=== PATIENT | male | born 2000 ===

== ENCOUNTER 2025-05-30 08:56 | Outpatient (REF) | payer OTHER, SELFPAY ==
[2025-05-31 09:59] LABS: MANUAL DIFF FLAG NO
[2025-05-31 10:07] LABS: Hematocrit 40.3 % (42.0-52.0); Hemoglobin 13.1 g/dl (14.0-18.0); Imm Gran Abs Auto 0.05 X10*3/uL (0.00-0.03); Imm Gran Pct Auto 0.6 % (0.0-0.4); Lymphocytes Absolute Auto 2.6 X10*3/uL (1.2-4.9); Mean Corpuscular HGB Conc 32.5 g/dl (31.0-36.0); Mean Corpuscular Hemoglobin 28.7 pg (27.0-33.0); Mean Corpuscular Volume 88.4 fL (80.0-98.0); NRBC Abs Auto 0.000 X10*3/uL (0.0-0.012); NRBC Pct Auto 0.0 /100WBC (0.0-0.2); Platelet Count 438 X10*3/uL (160-400); Red Blood Count 4.56 X10*6/uL (4.60-5.80); White Blood Count 8.7 X10*3/uL (4.8-10.8)
== END 2025-05-30 08:57 | disposition home or self-care (01) ==
LOC: HO.LNP 08:56
DX: K75.89 Other specified inflammatory liver diseases (principal)
CPT/HCPCS: 80053; 85025

== ENCOUNTER 2025-06-19 15:41 | Outpatient (REF) | payer OTHER, SELFPAY ==
--- OUTSIDE RECORDS SUMMARY | 2025-06-15 11:00 | XMS_ITS | Encounter Summary ---
Author Organization [facility] Address [address] [place] [address] Care Team Providers Care Plastic Jig And Fixture Builder Name Role Phone Basia Burnett MD Primary Care Provider [phone] Reason for Referral * MRI/CAT/PET Scan (Emergency) - Authorized Specialty Diagnoses / Procedures Referred By [facility] Referred To Contact Radiology Diagnoses Hepatic abscess (HCC) Procedures CT abdomen with contrast Laureen Lugo MD [address] [place] [phone] Phone: tel: fax: Referral ID Status Reason Start Date Expiration Date V isits Requested Visits Authorized [id number] Authorized 06/15/2025 09/12/2025 1 1 Reason for Visit * Reason Comments General ID * Consultation (Routine) - Authorized Specialty Diagnoses / Procedures Referred By Contdesi t Referred To Contact Infectious Diseases Diagnoses ID INPT f/u dx: liver abscess Procedures FOLLOW UP Roberto Herron MD [address] [place] [id number] Phone: tel: fax: [place] [address] Phone: tel: fax: Referral ID Status Reason Start Date Expiration Date V isits Requested Visits Authorized [id number] Authorized 06/15/2025 12/15/2026 6 6 Encounter Details Date Type Department Care Team (Late st Contact Info) Description 06/15/2025 11:00 AM EST Follow-Up [facility] Disease [facility] [address] [place] [address] Public Health Nutritionist: [place] [address] Hepatic abscess (HCC) (Primary Dx) Social History Tobacco Use Types Packs/Day Years Used Date Smoking Tobacco: Never Smokeless Tobacco: Current Comments:Vapes nicotene Alcohol Use Standard Drinks/Week Comments Yes 0 (1 standard drink = 0.6 oz pur e alcohol) ocassionally Hunger Vital Sign Answer Date Recorded Within the past 12 months, y ou worried that your food would run out before you got the money to buy more. Never true 05/14/20 25 Within the past 12 months, t he food you bought just didn't last and you didn't have money to get more. Never true 05/14/[address] [facility] Utilities Answer Date Recorded In the past 12 months has th e electric, gas, oil, or water company threatened to shut off services in your home? No 05/14/2025 Transportation Answer Date Recorded In the past 12 months, has l ack of reliable transportation kept you from medical appointments, meetings, work or from getting things needed for daily living? No 05/14/2025 Housing Answer Date Recorded Housing Risk Low 2 05/14/2025 Housing Risk Medium Not on file 05/14/2025 Housing Risk High Not on file 05/14/2025 What is your living situation today? [facility] 05/14/2025 Sex and Gender Information Value Date Recorded Sex Assigned at Male 12/15/2021 5:37 PM EDT Legal Sex Male 3:55 AM EDT Gender Identity Male 12/15/2021 5:37 PM EDT Sexual Orientation Straight 12/15/2021 5: 37 PM EDT documented as of this encounter Last Filed Vital Signs Vital Sign Reading Time Taken Comments Blood Pressure 114/51 06/15/2025 10:42 AM EST Pulse 75 06/15/2025 10:42 AM EST Temperature 36.8 C (98.3 F) 06/15/2025 10:42 AM EST Respiratory Rate 18 06/15/2025 10:42 AM EST Oxygen Saturation 97% 06/15/2025 10:42 AM EST Inhaled Oxygen Concentration - - Weight 78.9 kg (174 lb) 06/15/2025 10:42 AM EST Height - - Body Mass Index 24.27 05/26/2025 2:27 PM EDT documented in this encounter Progress Notes * Laureen Lugo MD - 06/15/2025 1:13 PM EST I saw and evaluated the patient. Case discussed with the resident/fellow and I agree with the findings and plan as documented in the resident's/fellow's note. * Doyle Soni MD - 06/15/2025 11:32 AM EST Infectious Disease Outpatient Follow-Up Date of service: 06/15/2025 Reason for follow-up: Liver abscess Interval history: IV ceftriaxone and metronidazole were continued. PICC line is functioning well, PICC line site is intact on the right arm. He has completed antibiotics for 4 weeks after drain insertion. CT abdomen on 05/24 showed significantly decreased size of hepatic abscess, largest locule measuring 2.3 cm. Transaminitis has resolved Subjective: He feels better, reports no active complaint. Review of systems: All other components of the review of systems are negative, except those described above. Medications: Current Outpatient Medications Medication Instructions 0.9% NaCl 0.9% piggyback 100 mL with cefTRIAXone 2 gram recon soln 2 g 2 g, intravenous, Every 24 hours scheduled acetaminophen (TYLENOL) 500 mg, 3 times daily PRN albuterol (PROAIR HFA,VENTOLIN HFA) 180 mcg, inhalation, Every 4 hours PRN apixaban (ELIQUIS) 5 mg tablet Take 2 tablets (10 mg total) by mouth every 12 hours for 3 days, THEN 1 tablet (5 mg total) every 12 hours. metroNIDAZOLE (FLAGYL) 500 mg, oral, Every 12 hours scheduled polyethylene glycol 3350 (MIRALAX) 17 g, oral, 2 times daily, Mix powder in 4 to 8 oz of water, juice, coffee, or tea prior to administration. psyllium (METAMUCIL) 3.4 gram packet 1 packet, oral, Daily PRN senna (SENOKOT) 17.2 mg, oral, Nightly simethicone (MYLICON) 80 mg, oral, After meals and nightly Allergies: Allergies Allergen Reactions Cat Dander Rhinorrhea Dog Dander Rhinorrhea Physical Exam: Vitals: 06/15/25 1042 BP: (!) 114/51 Pulse: 75 Resp: 18 Temp: 36.8 ??C (98.3 ??F) SpO2: 97% General appearance: No acute distress, well nourished HEENT: Normocephalic, atraumatic, no icterus or conjunctival erythema, moist mucous membranes, no oral lesions Neck: Supple CVS: Regular rate and rhythm, no murmurs Lungs: Clear to auscultation bilaterally, no wheezing/ or rhonchi Abdomen: Soft, non-distended, non-tender, bowel sounds audible MSK: No obvious abnormality Extremities: No edema or swelling Neuro: Alert and oriented, no focal deficits Psych: Normal mood and affect Laboratory data: I have independently reviewed all recent lab results; including all microbiological data and culture results from previous years. Microbiology data: No new micro data Radiology: I have reviewed all recent imagining data available independently. Impression: Alberto Johnson is a 25 y.o. male with h/o laparoscopic appendectomy on 05/06/2025 who was admitted 05/13 - 05/22 for liver abscess s/p drain placement on 05/17/2025, cultures grew streptococcus intermedius, he was discharged on IV Ceftriaxone and PO metronidazole for total 6 weeks after drain placement. Repeat CT Abdomen on 05/23/2025 showed significantly decreased size of right hepatic lobe abscess with several residual locules, largest measuring 2.3 cm. Drain was removed on 05/24/2025. He has completed antibiotics for 4 weeks after drain insertion. He is hemodynamically stable and afebrile. Planis to repeat CT abdomen with contrast to look for residual abscess, continue antibiotics for total 6 weeks. Follow-up on 06/29/2025, continue antibiotics till follow-up. Liver abscess S/p drain placement on 05/17/2025. Cultures growing Streptococcus intermedius. Drain removed on 05/24/[address] abdomen on 05/23/2025: significantly reduced liver abscess, Residual 2.3 cm locules. Recent laparoscopic appendectomy on 05/06/2025. Transaminitis -resolved Recommendations: Continue IV ceftriaxone 2 g once a day till 06/29/2025. Continue p.o. metronidazole 500 mg twice a day till 06/29/[address] abdomen with contrast to look for residual abscess. Follow-up on 06/29/2025. Monitor CBC with differential, CMP once a week, while on antibiotic therapy. We extensively discussed the typical course of liver abscess Doyle Soni MD Fellow Division of Infectious Diseases Alberto Johnson : 2000 CSN: [id number] documented in this encounter Plan of Treatment Upcoming Encounters Date Type Department Care Team (Late st Contact Info) Description 06/29/2025 8:30 AM EST Follow-Up [facility] Infect[facility] Disease Clinic [address] [place] [address] Public Health Nutritionist: [place] [address] 08/21/2025 2:00 PM EST Lab [facility] ACC Draw Site Fifth Floor [address] [place] [address] 08/21/2025 3:00 PM EST Follow-Up [facility] Building [facility] 5th Floor [address] [place] [address] Khloe Palacios MD [address] [place] [address] Scheduled Orders Name Type Priority Associated Diagnoses Orde r Schedule CT abdomen with contrast Imaging STAT Hepatic abscess (HCC) Expected: 06/15/2025, Expires: 08/15/2026 documented as of this encounter Visit Diagnoses Diagnosis Hepatic abscess (HCC)- Primary Abscess of liver documented in this encounter Care Teams Plastic Jig And Fixture Builder Relationship Specialty Start Date End Date Basia Burnett MD [address] [place] [phone] PCP - General Family Medicine 06/12/25 06/15/25 documented as of this encounter
[2025-06-19 15:48] LABS: MANUAL DIFF FLAG NO
[2025-06-19 16:32] LABS: Hematocrit 42.2 % (42.0-52.0); Hemoglobin 14.1 g/dl (14.0-18.0); Imm Gran Abs Auto 0.04 X10*3/uL (0.00-0.03); Imm Gran Pct Auto 0.6 % (0.0-0.4); Lymphocytes Absolute Auto 2.4 X10*3/uL (1.2-4.9); Mean Corpuscular HGB Conc 33.4 g/dl (31.0-36.0); Mean Corpuscular Hemoglobin 28.9 pg (27.0-33.0); Mean Corpuscular Volume 86.5 fL (80.0-98.0); NRBC Abs Auto 0.000 X10*3/uL (0.0-0.012); NRBC Pct Auto 0.0 /100WBC (0.0-0.2); Platelet Count 211 X10*3/uL (160-400); Red Blood Count 4.88 X10*6/uL (4.60-5.80); White Blood Count 6.6 X10*3/uL (4.8-10.8)
[2025-06-19 17:20] LABS: Alanine Aminotransferase 107 U/L (0-40); Albumin Level 4.4 g/dL (3.5-5.0); Alkaline Phosphatase 87 U/L (39-117); Anion Gap 11 (12-20); Aspartate Amino Transferase 55 U/L (5-37); Blood Urea Nitrogen 18 mg/dL (9-16); Calcium 9.1 mg/dL (8.4-10.2); Carbon Dioxide 28 mmol/L (22-29); Chloride 106 mmol/L (96-108); Estimated Glomerular Filt Rate > 60; Potassium 4.0 mmol/L (3.3-5.1); Sodium 141 mmol/L (135-145); Total Protein 7.4 g/dL (6.5-8.0)
--- OUTSIDE RECORDS SUMMARY | 2025-06-19 20:12 | XMS_ITS | Encounter Summary ---
Author Organization [facility] Address [address] [place] [address] Care Team Providers Care Pipeline Welder Name Role Phone Roberto Herron MD Primary Care Provider Encounter Details Date Type Department Care Team (Late st Contact Info) Description 05/23/2025 Orders Only [facility] [address] [place], [place] [phone] Dipti Valenzuela MD [address] [place], [place] [phone] Social History Tobacco Use Types Packs/Day Years [...] get more. Never true 05/14/2025 [facility] Utilities Answer Date Recorded In the past [...] PM EDT documented as of this encounter Plan of Treatment Upcoming Encounters Date Type Department Care Team (Late st Contact Info) Description 06/29/2025 8:30 AM EST Follow-Up [facility] Infect[facility] Disease Clinic [address] [place] [address] Tank Charger: [place] [address] 08/21/2025 2:00 PM EST Lab [facility] ACC Draw Site Fifth Floor [address] [place] [address] 08/21/2025 3:00 PM EST Follow-Up [facility] 5th Floor [address] [place] [address] Khloe Palacios MD [address] [place] [address] documented as of this encounter Visit Diagnoses Not on filedocumented in this encounter Care Teams Pipeline Welder Relationship Specialty Start Date End Date Roberto Herron MD [address] [place] [address] PCP - General Internal Medicine 06/16/25 documented as of this encounter
--- OUTSIDE RECORDS SUMMARY | 2025-06-19 20:12 | XMS_ITS | Clinical Summary ---
Author Organization [facility] Address [address] [place] [address] Care Team Providers Care Microsoft Architect Name Role Phone Roberto Herron MD Primary Care Provider [phone] Allergies Active Allergy Reactions Criticality Noted Date Comments Cat Dander Rhinorrhea 05/11/2024 Dog Dander Rhinorrhea 05/11/2024 Medications albuterol (PROAIR HFA,VENTOLIN HFA) 90 mcg inhalerIndicatio ns:Moderate persistent asthma without complication (HCC) Inhale 2 puffs (180 mcg total) by mouth every 4 hours as needed for wheezing or shortness of breath. 18 g 5 04/24/20 25 026 Active 0.9% NaCl 0.9% piggyback 100 mL with cefTRIAXone 2 gram recon soln 2 g Infuse 2 g intravenously every 24 hours. 05/23/20 25 025 Active simethicone (MYLICON) 80 mg chewable tablet Chew and swallow 1 tablet (80 mg total) by mouth after meals and at bedtime. 120 tablet 05/22/20 25 025 Active psyllium (METAMUCIL) 3.4 gram packet Take 1 packet by mouth daily as needed (constipation). 15 packet 05/22/20 25 025 Active polyethylene glycol 3350 (MIRALAX) 17 gram packet Take 1 packet (17 g total) by mouth 2 times a day. Mix powder in 4 to 8 oz of water, juice, coffee, or tea prior to administration. 60 packet 05/22/20 025 Active acetaminophen (TYLENOL) 500 mg tablet Take 500 mg by mouth 3 times a day as needed for pain. Active metroNIDAZOLE (FLAGYL) 500 mg tabletIndication s:S/P appendectomy Take 1 tablet (500 mg total) by mouth every 12 hours. 72 tablet 06/16/20 25 025 Active apixaban (ELIQUIS) 5 mg tabletIndication s:S/P appendectomy Take 2 tablets (10 mg total) by mouth every 12 hours for 3 days, THEN 1 tablet (5 mg total) every 12 hours. 372 tablet 06/16/20 25 026 Active senna (SENOKOT) 8.6 mg tabletIndication s:Constipation, unspecified constipation type Take 2 tablets (17.2 mg total) by mouth nightly. 60 tablet 06/19/20 25 025 Active oxyCODONE IR (ROXICODONE) 5 mg tablet Take 1 tablet (5 mg total) by mouth every 4 hours as needed for pain for up to 10 doses. Max Daily Amount: 30 mg 10 tablet 05/22/20 025 sodium chloride 0.9% injection 10 mL by intraluminal route every 12 hours for 72 doses. 720 mL 05/22/20 025 Discontinu ed(Stop Taking at Discharge) Active Problems Problem Noted Date Diagnosed Date Portal vein thrombosis 05/17/2025 Assessment & Plan (05/21/2025 7:21 AM EDT): MRI on 05/15/25 showed portal vein thrombosis in the setting of hepatic abscess, likely 2/2 to the hepatic abscess per discussion with hematology and no need for further hypercoagulability workup. Started on heparin GTT prior to IR-guided abscess drainage with discontinuation prior to procedure. -Hematology consult, appreciate recs -Plan for 6 months of anticoagulation: - Elequis 5mg BID for 6 months -Outpatient hematology follow up on discharge, appt booked Assessment & Plan (05/20/2025 11:26 AM EDT): MRI on 05/15/25 showed portal vein thrombosis in the setting of hepatic abscess, likely 2/2 to the hepatic abscess per discussion with hematology and no need for further hypercoagulability workup. Started on heparin GTT prior to IR-guided abscess drainage with discontinuation prior to procedure. -Hematology consult, appreciate recs -Plan for 6 months of anticoagulation: - Elequis 5mg BID for 6 months -Outpatient hematology follow up on discharge, appt booked Assessment & Plan (05/19/2025 8:15 AM EDT): MRI on 05/15/25 showed portal vein thrombosis in the setting of hepatic abscess, likely 2/2 to the hepatic abscess per discussion with hematology and no need for further hypercoagulability workup. Started on heparin GTT prior to IR-guided abscess drainage with discontinuation prior to procedure. -Hematology consult, appreciate recs -Plan for 6 months of anticoagulation: Elequis 5mg BID for 6 months -Outpatient hematology follow up on discharge, appt booked Assessment & Plan (05/18/2025 1:07 PM EDT): MRI on 05/15/25 showed portal vein thrombosis in the setting of hepatic abscess, likely 2/2 to the hepatic abscess per discussion with hematology and no need for further hypercoagulability workup. Started on heparin GTT prior to IR-guided abscess drainage with discontinuation prior to procedure. -Hematology consult, appreciate recs -Plan for 6 months of anticoagulation: Restarted therapeutic lovenox, pending authorization for DOAC -Outpatient hematology follow up on discharge. Assessment & Plan (05/17/2025 8:59 AM EDT): MRI on 05/15/25 showed portal vein thrombosis in the setting of hepatic abscess, likely 2/2 to the hepatic abscess per discussion with hematology and no need for further hypercoagulability workup. Started on heparin GTT prior to IR-guided abscess drainage with discontinuation prior to procedure. -Hematology consult, appreciate recs -Restart heparin GTT post-procedure -Outpatient hematology follow up on discharge. Constipation 05/15/2025 Assessment & Plan (05/21/2025 7:21 AM EDT): Pt had no BM from 05/16/25 through 05/19/25 - now S/P BM 05/19/25 (not documented) from full stool softener regimen. -Dulcolax 10mg once daily prn -Miralax 17g twice daily scheduled -Simethicone -Senna once daily Assessment & Plan (05/20/2025 11:26 AM EDT): Pt had no BM from 05/16/25 through 05/19/25 - now S/P BM 05/19/25 (not documented) from full stool softener regimen. -Dulcolax 10mg once daily prn -Miralax 17g twice daily scheduled -Simethicone -Senna once daily Assessment & Plan (05/19/2025 2:25 PM EDT): Pt had no BM from 05/16/25 through 05/19/25 - now S/P BM from full stool softener regimen. -Dulcolax 10mg once daily prn -Miralax 17g twice daily scheduled -Simethicone -Senna once daily Assessment & Plan (05/18/2025 1:07 PM EDT): Pt has not had a bowl movement since 05/13/25, and will now increase bowel regimen to promote bowel movement on 05/16/25. -Dulcolax 10mg once daily prn -Miralax 17g twice daily scheduled -Simethicone -Senna once daily -1 time bisacodyl suppository 05/16/25 Assessment & Plan (05/17/2025 7:40 AM EDT): Pt has not had a bowl movement since 05/13/25, and will now increase bowel regimen to promote bowel movement on 05/16/25. -Dulcolax 10mg once daily prn -Miralax 17g twice daily scheduled -Simethicone -Added Senna once daily -1 time bisacodyl suppository 05/16/25 Assessment & Plan (05/16/2025 9:05 AM EDT): Pt has not had a bowl movement since 05/13/25, and will now increase bowel regimen to promote bowel movement on 05/16/25. -Dulcolax 10mg once daily prn -Miralax 17g twice daily scheduled -Simethicone -Added Senna once daily -1 time bisacodyl suppository 05/16/25 Assessment & Plan (05/15/2025 10:27 AM EDT): Pt has not had a bowl movement since 05/13/25, -Dulcolax 10mg once daily prn -Miralax 17g once daily -Simethicone -When restarting diet, start with liquid diet given constipation and abdominal pain Hepatic abscess 05/13/2025 Assessment & Plan (05/29/2025 3:57 PM EST): Hospital discharge summary, labs, imaging reviewed. Currently on ceftriaxone IVABX. Has follow up on Thursday. Followed by ID. Has follow up appointments for 05/31 and 06/17. Assessment & Plan (05/21/2025 4:41 PM EDT): Pt developed right flank pain on 05/06/25, seen at [facility] and lap appendectomy for perforated appendicitis, and was recovering well until post-op day 5, when pt developed RLQ abdominal pain with fevers, chills, nausea, and decreased oral intake. He presented back at [place] [facility], and ultimately brought to [facility] (on post-op day 7) for new hepatic abscess. Pt was started on Zosyn with Bcx drawn, and IR, ID, and gen surgery consulted. Febrile in ED, started on zosyn, given fluids, and tylenol x1 - afebrile on evening of 05/14/25. Right hepatic multiloculated collection/abscess of unclear etiology, likely pyogenic liver abscess 2/2 perforated appendicitis (portal pylephlebitis ). However, differential also includes entameoba histolytica, direct extension of intraabdominal infection, post- operative/penetrating trauma related hepatic abscess, biliary source, to name a few. Currently HD stable awaiting IR drainage. -Daily CMPs (trend LFTs) -monitor WBC and fever curve - pain management -tylenol 650mg q6hrs prn, -wean hydromorphone 2mg q3 hrs as tolerated -d/c'ed hydromorphone 0.5mg IV for breakthrough - Incase of clinical deterioration, engage IR and Gen surgery -Tolerating diet --ID consulted, follow recommendations --empiric zosyn 3.375g IV q8h (05/13 - 05/21), -Per ID: Can discharge on IV ceftriaxone and metronidazole, PICC line placed on 05/21 -Pending home antibiotics and ID follow up - Ceftriaxone 2 g q24 hours (05/21 - ) - Metronidazole 500 mg PO q12 hours (05/21 - ) - 6 weeks total antibiotics from drain placement Aerobic culture with Gram Stain: Strep intermedius (05/19/25) Anaerobic culture in process Fungal Culture w/TIEN stain No fungi isolated to date (05/19/25) Blood cultures: 05/13/25 --> NGTD x2 (05/18/25) Stopped stool studies (never collected) Assessment & Plan (05/20/2025 12:26 PM EDT): Pt developed right flank pain on 05/06/25, seen at [facility] and lap appendectomy for perforated appendicitis, and was recovering well until post-op day 5, when pt developed RLQ abdominal pain with fevers, chills, nausea, and decreased oral intake. He presented back at [place] [facility], and ultimately brought to [facility] (on post-op day 7) for new hepatic abscess. Pt was started on Zosyn with Bcx drawn, and IR, ID, and gen surgery consulted. Febrile in ED, started on zosyn, given fluids, and tylenol x1 - afebrile on evening of 05/14/25. Right hepatic multiloculated collection/abscess of unclear etiology, likely pyogenic liver abscess 2/2 perforated appendicitis (portal pylephlebitis ). However, differential also includes entameoba histolytica, direct extension of intraabdominal infection, post- operative/penetrating trauma related hepatic abscess, biliary source, to name a few. Currently HD stable awaiting IR drainage. -Daily CMPs (trend LFTs) -monitor WBC and fever curve - pain management -tylenol 650mg q6hrs prn, -hydromorphone 2mg q3hrs for severe pain, -hydromorphone 0.5mg IV for breakthrough - Incase of clinical deterioration, engage IR and Gen surgery -Tolerating diet --ID consulted, follow recommendations --empiric zosyn 3.375g IV q8h (D1: 05/13), -Per ID: Can discharge on IV ceftriaxone and metronidazole, PICC line placement today. - Follow up with ID re. new culture results Aerobic culture with Gram Stain: Strep intermedius (05/19/25) Anaerobic culture in process Fungal Culture w/TIEN stain No fungi isolated to date (05/19/25) Blood cultures: 05/13/25 --> NGTD x2 (05/18/25) Shiga toxin and, EIA w/ reflex to E Coli 0157 cx - pending salmonella+shigella culture - pending campylobacter antigen - pending Ova and parasite exam - pending Giardia and cryptosporidium Ag panel - pending Assessment & Plan (05/19/2025 2:25 PM EDT): Pt developed right flank pain on 05/06/25, seen at [facility] and lap appendectomy for perforated appendicitis, and was recovering well until post-op day 5, when pt developed RLQ abdominal pain with fevers, chills, nausea, and decreased oral intake. He presented back at [place] [facility], and ultimately brought to [facility] (on post-op day 7) for new hepatic abscess. Pt was started on Zosyn with Bcx drawn, and IR, ID, and gen surgery consulted. Febrile in ED, started on zosyn, given fluids, and tylenol x1 - afebrile on evening of 05/14/25. Right hepatic multiloculated collection/abscess of unclear etiology, likely pyogenic liver abscess 2/2 perforated appendicitis (portal pylephlebitis ). However, differential also includes entameoba histolytica, direct extension of intraabdominal infection, post- operative/penetrating trauma related hepatic abscess, biliary source, to name a few. Currently HD stable awaiting IR drainage. -Daily CMPs (trend LFTs) -monitor WBC and fever curve - pain management -tylenol 650mg q6hrs prn, hydromorphine 2mg q3hrs for severe pain, hydromorphone 0.5mg IV for breakthrough - Incase of clinical deterioration, engage IR and Gen surgery --ID consulted, follow recommendations --empiric zosyn 3.375g IV q8h (D1: 05/13), pending outpatient antibiotic regimen based on pending abscess cultures. -Tolerating diet Abscess cultures pending Blood cultures: 05/13/25 --> NGTD x2 (05/18/25) Shiga toxin and, EIA w/ reflex to E Coli 0157 cx - pending salmonella+shigella culture - pending campylobacter antigen - pending Ova and parasite exam - pending Giardia and cryptosporidium Ag panel - pending Assessment & Plan (05/18/2025 1:15 PM EDT): Pt developed right flank pain on 05/06/25, seen at [facility] and lap appendectomy for perforated appendicitis, and was recovering well until post-op day 5, when pt developed RLQ abdominal pain with fevers, chills, nausea, and decreased oral intake. He presented back at [place] [facility], and ultimately brought to [facility] (on post-op day 7) for new hepatic abscess. Pt was started on Zosyn with Bcx drawn, and IR, ID, and gen surgery consulted. Febrile in ED, started on zosyn, given fluids, and tylenol x1 - afebrile on evening of 05/14/25. Right hepatic multiloculated collection/abscess of unclear etiology, likely pyogenic liver abscess 2/2 perforated appendicitis (portal pylephlebitis ). However, differential also includes entameoba histolytica, direct extension of intraabdominal infection, post- operative/penetrating trauma related hepatic abscess, biliary source, to name a few. Currently HD stable awaiting IR drainage. -empiric zosyn 3.375g IV q8h (D1: 05/13) -Daily CMPs (trend LFTs) -monitor WBC and fever curve - pain management -tylenol 650mg q6hrs prn, hydromorphine 2mg q3hrs for severe pain -NPO after MN Thursday for IR-guided drain placement Thursday - Incase of clinical deterioration, engage IR and Gen surgery --ID consulted, follow recommendations -Tolerating diet --empiric zosyn 3.375g IV q8h (D1: 05/13), pending outpatient antibiotic regimen based on pending abscess cultures. Abscess cultures: Gram stain, fungal culture, aerobic culture, anaerobic culture all pending Blood cultures: 05/13/25 --> NGTD x2 (05/18/25) Shiga toxin and, EIA w/ reflex to E Coli 0157 cx - pending salmonella+shigella culture - pending campylobacter antigen - pending Ova and parasite exam - pending Giardia and cryptosporidium Ag panel - pending Assessment & Plan (05/17/2025 8:59 AM EDT): Pt developed right flank pain on 05/06/25, seen at [facility] and lap appendectomy for perforated appendicitis, and was recovering well until post-op day 5, when pt developed RLQ abdominal pain with fevers, chills, nausea, and decreased oral intake. He presented back at [place] [facility], and ultimately brought to [facility] (on post-op day 7) for new hepatic abscess. Pt was started on Zosyn with Bcx drawn, and IR, ID, and gen surgery consulted. Febrile in ED, started on zosyn, given fluids, and tylenol x1 - afebrile on evening of 05/14/25. Right hepatic multiloculated collection/abscess of unclear etiology, likely pyogenic liver abscess 2/2 perforated appendicitis (portal pylephlebitis ). However, differential also includes entameoba histolytica, direct extension of intraabdominal infection, post- operative/penetrating trauma related hepatic abscess, biliary source, to name a few. Currently HD stable awaiting IR drainage. -empiric zosyn 3.375g IV q8h (D1: 05/13) -Daily CMPs (trend LFTs) -monitor WBC and fever curve - pain management -tylenol 650mg q6hrs prn, hydromorphine 2mg q3hrs for severe pain -NPO after MN Thursday for IR-guided drain placement Thursday - Incase of clinical deterioration, engage IR and Gen surgery --ID consulted, follow recommendations -Holding heparin for IR drainage today -NPO for procedure, liquid diet post-procedure Blood cultures: 05/13/25 --> NGTD x2 (05/17/25) Shiga toxin and, EIA w/ reflex to E Coli 0157 cx - pending salmonella+shigella culture - pending campylobacter antigen - pending Ova and parasite exam - pending Giardia and cryptosporidium Ag panel - pending Assessment & Plan (05/16/2025 9:05 AM EDT): Pt developed right flank pain on 05/06/25, seen at [facility] and lap appendectomy for perforated appendicitis, and was recovering well until post-op day 5, when pt developed RLQ abdominal pain with fevers, chills, nausea, and decreased oral intake. He presented back at [place] [facility], and ultimately brought to [facility] (on post-op day 7) for new hepatic abscess. Pt was started on Zosyn with Bcx drawn, and IR, ID, and gen surgery consulted. Febrile in ED, started on zosyn, given fluids, and tylenol x1 - afebrile on evening of 05/14/25. Right hepatic multiloculated collection/abscess of unclear etiology, likely pyogenic liver abscess 2/2 perforated appendicitis (portal pylephlebitis ). However, differential also includes entameoba histolytica, direct extension of intraabdominal infection, post- operative/penetrating trauma related hepatic abscess, biliary source, to name a few. Currently HD stable awaiting IR drainage. -empiric zosyn 3.375g IV q8h (D1: 05/13) -Daily CMPs (trend LFTs) -monitor WBC and fever curve - pain management -tylenol 650mg q6hrs prn, hydromorphine 2mg q3hrs for severe pain -NPO after MN Thursday for IR-guided drain placement Thursday - Incase of clinical deterioration, engage IR and Gen surgery --ID consulted, follow recommendations -Holding lovenox for possible IR drainage. -NPO for procedure, liquid diet post-procedure -100mL/hr for 1L LR today Blood cultures: 05/13/25 --> NGTD x2 (05/16/25) Shiga toxin and, EIA w/ reflex to E Coli 0157 cx - pending salmonella+shigella culture - pending campylobacter antigen - pending Ova and parasite exam - pending Giardia and cryptosporidium Ag panel - pending Assessment & Plan (05/15/2025 10:27 AM EDT): Pt developed right flank pain on 05/06/25, seen at [facility] and lap appendectomy for perforated appendicitis, and was recovering well until post-op day 5, when pt developed RLQ abdominal pain with fevers, chills, nausea, and decreased oral intake. He presented back at [place] [facility], and ultimately brought to [facility] (on post-op day 7) for new hepatic abscess. Pt was started on Zosyn with Bcx drawn, and IR, ID, and gen surgery consulted. Febrile in ED, started on zosyn, given fluids, and tylenol x1 - afebrile on evening of 05/14/25. Right hepatic multiloculated collection/abscess of unclear etiology, likely pyogenic liver abscess 2/2 perforated appendicitis (portal pylephlebitis ). However, differential also includes entameoba histolytica, direct extension of intraabdominal infection, post- operative/penetrating trauma related hepatic abscess, biliary source, to name a few. Currently HD stable awaiting IR drainage. -empiric zosyn 3.375g IV q8h (D1: 05/13) -Daily CMPs (trend LFTs) -monitor WBC and fever curve - pain management -tylenol 650mg q6hrs prn, hydromorphine 2mg q3hrs for severe pain -NPO after MN Thursday for IR-guided drain placement Thursday - Incase of clinical deterioration, engage IR and Gen surgery --ID consulted, follow recommendations -Holding lovenox for possible IR drainage. -NPO for procedure, liquid diet post-procedure -Consider LR Blood cultures: 05/13/25 --> NGTD x2 (05/15/25) Shiga toxin and, EIA w/ reflex to E Coli 0157 cx - pending salmonella+shigella culture - pending campylobacter antigen - pending Ova and parasite exam - pending Giardia and cryptosporidium Ag panel - pending Assessment & Plan (05/14/2025 4:06 PM EDT): Patient is a otherwise healthy 25-year-old male with history of appendicitis status post laparoscopic appendectomy 05/06 who returns with 2 days of abdominal pain, fevers, and nausea. He is afebrile and hemodynamically stable. WBC elevated to 15. CT abdomen pelvis reveals a enlarged multiloculated hepatic abscess measuring 6 x 5 x 6 cm compared to 2 x 3 x [address] from 05/05. On exam he has generalized abdominal tenderness mostly over the right upper quadrant. Patient presents with likely a hepatic abscess in the setting of appendicitis now postop day 7 status post laparoscopic appendectomy. IR has been consulted for consideration of percutaneous drainage of the abscess. General surgery team will follow-up this procedure. Otherwise continue IV antibiotics and supportive care. -No acute surgical interventions. Agree with percutaneous drainage of hepatic abscess with IR - IV antibiotics Discussed with attending general surgeon Dr. Horta Assessment & Plan (05/14/2025 2:17 PM EDT): Right hepatic multiloculated collection/abscess of unclear etiology -follow up blood cultures -empiric zosyn 3.375g IV q8h (D1: 05/13) -Received IVF, continue to encourage po intake. -trend LFTs -monitor WBC and fever curve - pain management -NPO after MN Thursday for IR-guided drain placement Thursday - Incase of clinical deterioration, engage IR and Gen surgery --ID consulted, follow recommendations Mild intermittent asthma without complication Assessment & Plan (05/21/2025 7:21 AM EDT): History of mild uncomplicated asthma. No bronchospasm on exam -albuterol as needed Assessment & Plan (05/20/2025 7:13 AM EDT): History of mild uncomplicated asthma. No bronchospasm on exam -albuterol as needed Assessment & Plan (05/19/2025 6:41 AM EDT): History of mild uncomplicated asthma. No bronchospasm on exam -albuterol as needed Assessment & Plan (05/18/2025 8:07 AM EDT): History of mild uncomplicated asthma. No bronchospasm on exam -albuterol as needed Assessment & Plan (05/17/2025 8:59 AM EDT): History of mild uncomplicated asthma. No bronchospasm on exam -albuterol as needed Assessment & Plan (05/16/2025 6:50 AM EDT): History of mild uncomplicated asthma. No bronchospasm on exam -albuterol as needed Assessment & Plan (05/15/2025 9:21 AM EDT): History of mild uncomplicated asthma. No bronchospasm on exam -albuterol as needed Assessment & Plan (05/14/2025 9:06 AM EDT): History of mild uncomplicated asthma. No bronchospasm on exam -albuterol as needed Atypical mole 07/26/2024 Assessment & Plan (07/26/2024 12:32 PM EST): Left testicle, raised brown mole, no bleeding.Has been there for a long time . Will refer to dermatology. Orders: Ambulatory referral to Dermatology; Future Resolved Problems Problem Noted Date Diagnosed Date Resolved Date Nicotine dependence, uncomplicated 05/15/2025 05/22/2025 Assessment & Plan (05/21/2025 7:21 AM EDT): - Nicorette gum 2mg q1hr prn Assessment & Plan (05/20/2025 7:13 AM EDT): - Nicorette gum 2mg q1hr prn Assessment & Plan (05/19/2025 6:41 AM EDT): - Nicorette gum 2mg q1hr prn Assessment & Plan (05/18/2025 8:07 AM EDT): - Nicorette gum 2mg q1hr prn Assessment & Plan (05/17/2025 7:40 AM EDT): - Nicorette gum 2mg q1hr prn Assessment & Plan (05/16/2025 6:50 AM EDT): - Nicorette gum 2mg q1hr prn Assessment & Plan (05/15/2025 7:41 AM EDT): - Nicorette gum 2mg q1hr prn SIRS (systemic inflammatory response syndrome) 05/15/2025 05/22/2025 Assessment & Plan (05/21/2025 7:21 AM EDT): Pt was septic on admission (leukocytosis, fever, and known source), now on Zosyn, S/P fluids, and with pending Bcxs. HD stable and no longer febrile (post-tylenol). --monitor WBC and fever curve --See hepatic Abscess tab Assessment & Plan (05/20/2025 12:26 PM EDT): Pt was septic on admission (leukocytosis, fever, and known source), now on Zosyn, S/P fluids, and with pending Bcxs. HD stable and no longer febrile (post-tylenol). --monitor WBC and fever curve --See hepatic Abscess tab Assessment & Plan (05/19/2025 2:25 PM EDT): Pt was septic on admission (leukocytosis, fever, and known source), now on Zosyn, S/P fluids, and with pending Bcxs. HD stable and no longer febrile (post-tylenol). --monitor WBC and fever curve --empiric zosyn 3.375g IV q8h (D1: 05/13- 05/22 pending further recs), pending outpatient antibiotic regimen based on pending drainage cultures Assessment & Plan (05/18/2025 1:07 PM EDT): Pt was septic on admission (leukocytosis, fever, and known source), now on Zosyn, S/P fluids, and with pending Bcxs. HD stable and no longer febrile (post-tylenol). --monitor WBC and fever curve --empiric zosyn 3.375g IV q8h (D1: 05/13), pending outpatient antibiotic regimen based on pending drainage cultures. Assessment & Plan (05/17/2025 7:40 AM EDT): Pt was septic on admission (leukocytosis, fever, and known source), now on Zosyn, S/P fluids, and with pending Bcxs. HD stable and no longer febrile (post-tylenol). --monitor WBC and fever curve --empiric zosyn 3.375g IV q8h (D1: 05/13) Assessment & Plan (05/16/2025 9:05 AM EDT): Pt was septic on admission (leukocytosis, fever, and known source), now on Zosyn, S/P fluids, and with pending Bcxs. HD stable and no longer febrile (post-tylenol). --monitor WBC and fever curve --empiric zosyn 3.375g IV q8h (D1: 05/13) -1L LR Assessment & Plan (05/15/2025 10:27 AM EDT): Pt was septic on admission (leukocytosis, fever, and known source), now on Zosyn, S/P fluids, and with pending Bcxs. HD stable and no longer febrile (post-tylenol). --monitor WBC and fever curve --empiric zosyn 3.375g IV q8h (D1: 05/13) --Low threshold to restart fluids (but good oral intake) Sepsis 05/15/2025 05/22/2025 Assessment & Plan (05/21/2025 7:21 AM EDT): Pt was septic on admission (leukocytosis, fever, and known source), now on Zosyn, S/P fluids, and with pending Bcxs. HD stable and no longer febrile (post-tylenol). --monitor WBC and fever curve --See hepatic Abscess tab Assessment & Plan (05/20/2025 12:26 PM EDT): Pt was septic on admission (leukocytosis, fever, and known source), now on Zosyn, S/P fluids, and with pending Bcxs. HD stable and no longer febrile (post-tylenol). --monitor WBC and fever curve --See hepatic Abscess tab Assessment & Plan (05/19/2025 2:25 PM EDT): Pt was septic on admission (leukocytosis, fever, and known source), now on Zosyn, S/P fluids, and with pending Bcxs. HD stable and no longer febrile (post-tylenol). --monitor WBC and fever curve --empiric zosyn 3.375g IV q8h (D1: 05/13- 05/22 pending further recs), pending outpatient antibiotic regimen based on pending drainage cultures Assessment & Plan (05/18/2025 1:07 PM EDT): Pt was septic on admission (leukocytosis, fever, and known source), now on Zosyn, S/P fluids, and with pending Bcxs. HD stable and no longer febrile (post-tylenol). --monitor WBC and fever curve --empiric zosyn 3.375g IV q8h (D1: 05/13), pending outpatient antibiotic regimen based on pending drainage cultures. Assessment & Plan (05/17/2025 7:40 AM EDT): Pt was septic on admission (leukocytosis, fever, and known source), now on Zosyn, S/P fluids, and with pending Bcxs. HD stable and no longer febrile (post-tylenol). --monitor WBC and fever curve --empiric zosyn 3.375g IV q8h (D1: 05/13) Assessment & Plan (05/16/2025 9:05 AM EDT): Pt was septic on admission (leukocytosis, fever, and known source), now on Zosyn, S/P fluids, and with pending Bcxs. HD stable and no longer febrile (post-tylenol). --monitor WBC and fever curve --empiric zosyn 3.375g IV q8h (D1: 05/13) -1L LR Assessment & Plan (05/15/2025 10:27 AM EDT): Pt was septic on admission (leukocytosis, fever, and known source), now on Zosyn, S/P fluids, and with pending Bcxs. HD stable and no longer febrile (post-tylenol). --monitor WBC and fever curve --empiric zosyn 3.375g IV q8h (D1: 05/13) --Low threshold to restart fluids (but good oral intake) Encounter to establish care 07/11/2024 05/29/2025 Assessment & Plan (07/11/2024 11:28 AM EST): Patient in good/stable condition. We discussed findings of exam, labs and imaging done We discussed screening tests recommended for age group We discussed immunization recommendations Appropriate labs and imaging studies ordered. Moderate persistent asthma w ithout complication 07/11/2024 05/29/2025 Assessment & Plan (07/26/2024 12:32 PM EST): Asthma not documented has having LABA ICS Advair/ Symbicort pt does not want these ordered as he cannot afford these. Will be losing Insurance Coverage soon, declines referral to Pulmonology at this time. Pilonidal cyst 01/01/2022 07/11/2024 Encounters Date Type Department Care Team Description 06/16/2025 Refill [facility] [address] [place] [phone] Roberto Herron MD Constipation, unspecified constipation type (Primary Dx) 06/16/2025 Telephone [facility] [address] [place] [phone] Barge Engineer: Sarah Rivera Telephone Intake, Staff PAC Patient Request Call Back 06/16/2025 Refill [facility] [address] [place] [phone] Roberto Herron MD S/P appendectomy (Primary Dx) 06/15/2025 11:00 AM EST Follow-Up [facility] [address] [place] [phone] Barge Engineer: Doyle Watts MD Hepatic abscess (HCC) (Primary Dx) 06/15/2025 Orders Only [facility] [address] [place] [phone] Pola Melissa MD 06/08/2025 Orders Only [facility] [address] [place] [phone] Barge Engineer: Paul Amaro MD 06/08/2025 myChart Message [facility] [address] [facility] Department [address] [place] [address] [phone] Mychart, Generic Provider forms 06/08/2025 Telephone [facility] [address] [facility] Department [address] [place] [address] [phone] Roberto Herron MD fitness for duty 06/01/2025 Orders Only [facility] [address] [place] [phone] Barge Engineer: Doyle Watts MD Hepatic abscess (HCC) (Primary Dx); Transaminitis 06/01/2025 myChart Message [facility] [address] [facility] Department [address] [place] [address] [phone] Emeterio Nichole PA FMLA 05/31/2025 1:00 PM EST Follow-Up [facility] [address] [place] [phone] Barge Engineer: Doyle Watts MD Hepatic abscess (HCC) (Primary Dx); Transaminitis 05/31/2025 Telephone [facility] [address] [place] [address] [phone] Emeterio Nichole PA Forms/questionnaire s (Patient drops off FMLA forms for completion ) 05/29/2025 3:00 PM EST Office Visit [facility] [address] [facility] Department [address] [place] [address] [phone] Emeterio Nichole PA Hepatic abscess (HCC) (Primary Dx) 05/26/2025 2:30 PM EDT - 05/26/2025 2:53 PM EDT Emergency [facility] Emergency Department [address] [place] [phone] Jeremie Medina MD Dressing change (Primary Dx) Discharge Disposition: Home or Self Care () 05/26/2025 4:10 AM EDT - 05/26/2025 5:14 AM EDT Emergency [facility] Emergency Department [address] [place] [phone] Tristan Liriano MD Examination (Primary Dx) Discharge Disposition: Home or Self Care () 05/26/2025 12:55 AM EDT - 05/26/2025 3:30 AM EDT Emergency [facility] Emergency Department [address] [place] [address] Discharge Disposition: Left Without Being Seen () 05/24/2025 12:57 PM EDT - 05/24/2025 11:59 PM EDT Hospital Encounter [facility] Interventional Radiology [address] [place] [address] Hepatic abscess (HCC) Discharge Disposition: Home or Self Care () 05/24/2025 11:31 AM EDT - 05/24/2025 12:56 PM EDT Hospital Encounter [facility] CT [address] [place] [address] Hepatic abscess (HCC) Discharge Disposition: Home or Self Care () 05/23/2025 Orders Only [facility] Interventional Radiology [address] [place] [address] Esperanza Stover PA Hepatic abscess (HCC) (Primary Dx) 05/23/2025 Orders Only [facility] CT [address] [place] [address] Dipti Valenzuela MD 05/23/2025 Orders Only [facility] Interventional Radiology [address] [place] [address] Francesca Fitzgerald NP Hepatic abscess (HCC) (Primary Dx) 05/23/2025 Telephone [facility] [address] FM Department [address] [place] [phone] Roberto Herron MD TCM 05/16/2025 Telephone [facility] Interventional Radiology [address] [place] [address] Marlena Dave RN 05/13/2025 12:39 PM EDT - 05/22/2025 5:12 PM EDT Hospital Encounter [facility] [address] [place] [phone] Perez Olmedo MD Weisberg, MD Satinder Segura, MD Beth Hannon Amy B, MD Paladugu, Keerthana, MD Thampatty, Gayathri, MD Kumar, Jayanthi, MD Hepatic abscess (HCC) (Primary Dx) Discharge Disposition: Home with Services () 05/13/2025 6:33 AM EDT - 05/13/2025 11:50 AM EDT Emergency [facility] Emergency Department [address] [place] [phone] Delio Tavera MD Liver abscess (HCC) (Primary Dx); Pylephlebitis (HCC) Discharge Disposition: Short Term/Acute Care [facility] (02) 05/09/2025 Telephone [facility] [address] FM Department [address] [place] [phone] Roberto Herron MD TCM 05/06/2025 9:30 AM EDT - 05/06/2025 10:40 AM EDT Surgery [facility] OR [address] [place] [phone] Sascha Trujillo MD LAPAROSCOPIC APPENDECTOMY [[id number] (CPT )] 05/06/2025 9:11 AM EDT Anesthesia Event [facility] OR [address] [place] [phone] Michaela Jarquin MD 05/05/2025 4:35 PM EDT - 05/06/2025 11:21 AM EDT Emergency [facility] OR [address] [place] [address] Christina Perry MD Kaminsky, Jennifer, MD Narovec, Conor M, MD Acute appendicitis with localized peritonitis without abscess, unspecified whether gangrene present, unspecified whether perforation present (Primary Dx); Acute appendicitis with localized peritonitis, without perforation, abscess, or gangrene Discharge Disposition: Home or Self Care () 04/24/2025 Refill [facility] [address] Department 10 [facility] [place] [phone] Desirae Lyons MA Moderate persistent asthma without complication (HCC) (Primary Dx) from Last 3 Months Immunizations Immunization Administration Dates Next Due Covid-19, Pfizer, mRNA, [place] valent, PF 30 mcg/0.3 mL dose (for ages 12 and older) 01/03/2021,12/14/2020 [id number] 2001,2001 Haemophilus Influenzae Type B Conjugate and Hepatitis B Vaccine 07/21/2002,2001,2001,06/15 Hepatitis A Vaccine, Adult Dosage 04/28/2024 Hepatitis B Vaccine, Pediatr ic or Pediatric/Adolescent Dosage 01/03/2002,2001,2001 Human Papillomavirus 9-Valent Vaccine 08/07/2023 ,03/02/2023,01/29/2023 INFLUENZA, SPLIT VIRUS, TRIVALENT, PF 05/22/2025 Influenza, Injectable, Madin Argyle Canine Kidney, Quadrivalent 04/17/2020 Influenza, Injectable, Quadr ivalent, Contains Preservative 06/14/2013,07/23/2012,05/21/2010,05/03 Influenza, Injectable, Quadr ivalent, Preservative Free 05/14/2021,07/23/2015 Influenza, Trivalent, MDV, Injectable 04/28/2024 Measles, Mumps, and Rubella Vaccine 04/18/2005,1 2001 Meningococcal B Vaccine, Rec ombinant, OMV, Adjuvanted 07/15/2021,02/23/2020 Meningococcal Polysaccharide (Groups A, C, Y and W-135) Diphtheria Toxoid Conjugate Vaccine (MCV4P) 01/06/2020,07/19/2014 Pneumococcal Conjugate Vacci ne, 13 Valent 07/21/2002,2001,2001,06/15 Pneumococcal Conjugate Vacci ne, 7 Valent 07/21/2002,2001,2001,06/15 Pneumococcal conjugate PCV20,polysaccharide [id number] conjugate, adjuvant, PF (Prevnar 20) 07/26/2024,07/24/2024(Deferred: Other) Poliovirus Vaccine, Inactivated 04/20/20,10/25/2002,2001,06/15 Tetanus Toxoid, Reduced Diph theria Toxoid, and Acellular Pertussis Vaccine, Adsorbed 01/29/2023,06/14/2013 Varicella Virus Vaccine 04/29/2007,04/11/2002 Family History Medical History Relation Name Comments Colon cancer Paternal Grandmother Relation Name Status Comments Father Alive Mother Alive Paternal Grandmother Sister Alive Social History Tobacco Use Types Packs/Day Years Used Date Smoking Tobacco: Never Smokeless Tobacco: Current Tobacco Cessation:Ready to Q uit: Not Asked; Counseling Given: Not Answered Comments:Vapes nicotene Alcohol Use Standard Drinks/Week Comments [...] money to get more. Never true 05/14/2025 [facility] Utilities Answer Date Recorded In the [...] Orientation Straight 12/15/2021 5: 37 PM EDT Last Filed Vital Signs Vital Sign Reading Time Taken Comments Blood Pressure 114/51 06/15/2025 10:42 AM EST Pulse 75 06/15/2025 10:42 AM EST Temperature 36.8 C (98.3 F) 06/15/2025 10:42 AM EST Respiratory Rate 18 06/15/2025 10:42 AM EST Oxygen Saturation 97% 06/15/2025 10:42 AM EST Inhaled Oxygen Concentration - - Weight 78.9 kg (174 lb) 06/15/2025 10:42 AM EST Height 180.3 cm (5' 11 ) 05/26/2025 2:27 PM EDT Body Mass Index 24.27 05/26/2025 2:27 PM EDT Plan of Treatment Upcoming Encounters Date Type Department Care Team (Late st Contact Info) Description 06/29/2025 8:30 AM EST Follow-Up [facility] [address] [place] [address] Barge Engineer: [place] [address] 08/21/2025 2:00 PM EST Lab [facility] ACC Draw Site Fifth Floor [address] [place] [address] 08/21/2025 3:00 PM EST Follow-Up [facility] 5th Floor [address] [place] [address] Khloe Palacios MD [address] [place] [address] Health Maintenance Due Date Last Done Comments Alcohol/Substance Use Screening 07/27/2024 07/26/2024 Depression Screening and Follow-Up 07/27/2024 07/26/2024 Social Drivers of Health Annual Screening 07/27/2024 COVID-19 Vaccine ( season) 2026 08/02/2021, 01/03/2021, 12/14/2020 Postponed from 03/27/2025 (Patient Declined) DTaP,Tdap,and Td Vaccines (5 - Td or Tdap) 01/29/2033 01/29/2023, 06/14/2013, 2001, Additional history exists Hepatitis B Vaccines Completed 07/21/2002, 01/03/2002, 2001, Additional history exists Varicella Vaccines Completed 04/29/2007, 04/11/2002 HPV Vaccines Completed 08/07/2023, 0801/2023, 01/29/2023 HIV Screening Completed 07/26/2024 Pneumococcal Vaccine: Pediatric (0-5 Years) and At-Risk Patients (6-50 Years) Completed 07/26/2024, 07/21/2002, 07/21/2002, Additional history exists Hepatitis C Screening Completed 05/14/2025 , 05/13/2025, 07/26/2024 Influenza Vaccine Completed 05/22/2025, , 05/14/2021, Additional history exists Procedures * Due to [place] state law, this organization might not be sharing negative HIV tests. Procedure Name Priority Date/Time Associated Diagnosis Comments CBC AUTO DIFFERENTIAL, OUTSIDE LAB Routine 06/06/2025 3:36 PM EST COMPREHENSIVE METABOLIC PANEL, OUTSIDE LAB Routine 06/06/2025 3:36 PM EST ED WOUND CARE Routine 05/26/2025 2:[address] ABDOMEN PELVIS W CONTRAST Routine 05/24/2025 1:03 PM EDT Hepatic abscess (HCC) HEPATIC FUNCTION PANEL Add-On 05/22/2025 5:33 AM EDT MAGNESIUM Routine 05/22/2025 5:33 AM EDT CBC AUTO DIFFERENTIAL Routine 05/22/2025 5:33 AM EDT RENAL FUNCTION PANEL Routine 05/22/2025 5:33 AM EDT TYPE AND SCREEN Timed 05/21/2025 6:29 AM EDT MAGNESIUM Routine 05/21/2025 6:26 AM EDT RENAL FUNCTION PANEL Routine 05/21/2025 6:26 AM EDT CBC AUTO DIFFERENTIAL Routine 05/21/2025 6:07 AM EDT XR CHEST 1 VW STAT 05/21/2025 1:08 AM EDT [facility] IV TELEPHONE SWITCHBOARD OPERATOR PICC Routine 05/21/2025 12:50 AM EDT MAGNESIUM Routine 05/20/2025 5:44 AM EDT CBC AUTO DIFFERENTIAL Routine 05/20/2025 5:44 AM EDT RENAL FUNCTION PANEL Routine 05/20/2025 5:44 AM EDT MAGNESIUM Routine 05/19/2025 7:50 AM EDT CBC AUTO DIFFERENTIAL Routine 05/19/2025 7:50 AM EDT RENAL FUNCTION PANEL Routine 05/19/2025 7:50 AM EDT TYPE AND SCREEN Timed 05/18/2025 6:46 AM EDT MAGNESIUM Routine 05/18/2025 6:46 AM EDT CBC AUTO DIFFERENTIAL Routine 05/18/2025 6:46 AM EDT RENAL FUNCTION PANEL Routine 05/18/2025 6:46 AM EDT IR ABSCESS DRAIN STAT 05/17/2025 12:4 1 PM EDT (DO NOT ORDER) ANAEROBIC CULTURE-QML Routine 05/17/2025 12:17 PM EDT AEROBIC CULTURE W/GRAM STAIN Routine 05/17/2025 12:17 PM EDT FUNGUS CULTURE W/STAIN Routine 05/17/2025 12:17 PM EDT AEROBIC AND ANAEROBIC CULTURE W/GRAM STAIN Routine 05/17/2025 12:17 PM EDT LAVENDER TOP Routine 05/17/2025 7:01 AM EDT EXTRA TUBES Routine 05/17/2025 7:01 AM EDT CBC AUTO DIFFERENTIAL Add-On 05/17/2025 7:01 AM EDT PROTIME-INR Add-On 05/17/2025 6:21 AM EDT MAGNESIUM Add-On 05/17/2025 6:21 AM EDT RENAL FUNCTION PANEL Add-On 05/17/2025 6:21 AM EDT PTT Timed 05/17/2025 6:21 AM EDT FERRITIN Routine 05/17/2025 6:21 AM EDT IRON SATURATION Routine 05/17/2025 6:21 AM EDT IRON, TIBC AND FERRITIN PANEL (5616) Routine 05/17/2025 6:21 AM EDT PTT Timed 05/16/2025 11:33 PM EDT PTT Timed 05/16/2025 5:54 PM EDT COMPREHENSIVE METABOLIC PANEL Routine 05/16/2025 6:47 AM EDT CBC AUTO DIFFERENTIAL Routine 05/16/2025 6:47 AM EDT PROTIME-INR Routine 05/16/2025 6:47 AM EDT PROTIME-INR Routine 05/15/2025 6:47 AM EDT TYPE AND SCREEN Routine 05/15/2025 6:47 AM EDT MAGNESIUM Routine 05/15/2025 6:47 AM EDT CBC AUTO DIFFERENTIAL Routine 05/15/2025 6:47 AM EDT MRI LIVER W WO CONTRAST Routine 05/15/2025 12:40 AM EDT XR ABDOMEN 2 VW W CHEST 1 VW STAT 05/14/2025 3:29 PM EDT HEPATITIS PANEL, ACUTE STAT 05/14/2025 11:50 AM EDT PHOSPHORUS Routine 05/14/2025 5:06 AM EDT MAGNESIUM Routine 05/14/2025 5:06 AM EDT CBC AUTO DIFFERENTIAL Routine 05/14/2025 5:06 AM EDT COMPREHENSIVE METABOLIC PANEL Routine 05/14/2025 5:06 AM EDT TYPE AND SCREEN STAT 05/13/2025 6:36 PM EDT GOLD TOP Routine 05/13/2025 1:57 PM EDT LIGHT GREEN TOP Routine 05/13/2025 1:57 PM EDT EXTRA TUBES Routine 05/13/2025 1:57 PM EDT HEPATIC FUNCTION PANEL STAT 05/13/2025 1:49 PM EDT CBC AUTO DIFFERENTIAL STAT 05/13/2025 1:49 PM EDT HEPATITIS C ANTIBODY W/REFLEX TO HCV RNA, QUANTITATIVE PCR STAT 05/13/2025 1:[address] ABDOMEN PELVIS W CONTRAST STAT 05/13/2025 7:51 AM EDT LACTIC ACID, PLASMA W/ REPEAT STAT 05/13/2025 7:42 AM EDT MICROSCOPIC URINALYSIS ONLY Routine 05/13/2025 6:49 AM EDT UA/CULTURE REFLEX Routine 05/13/2025 6:4 9 AM EDT URINALYSIS W/REFLEX TO MICROSCOPIC & CULTURE Routine 05/13/2025 6:49 AM EDT LIPASE STAT 05/13/2025 6:45 AM EDT COMPREHENSIVE METABOLIC PANEL STAT 05/13/2025 6:45 AM EDT CBC AUTO DIFFERENTIAL STAT 05/13/2025 6:45 AM EDT ED/IP ONLY BLOOD CULTURE STAT 05/13/2025 6:45 AM EDT ED/IP ONLY BLOOD CULTURE STAT 05/13/2025 6:45 AM EDT TISSUE EXAM - MAI ONLY Routine 05/06/2025 9:52 AM EDT Acute appendicitis with localized peritonitis without abscess, unspecified whether gangrene present, unspecified whether perforation present CO LAP,APPENDECTOMY 05/06/2025 9 :16 AM EDT Acute appendicitis with localized peritonitis without abscess, unspecified whether gangrene present, unspecified whether perforation present CT ABDOMEN PELVIS W CONTRAST STAT 05/05/2025 8:43 PM EDT UA/CULTURE REFLEX Routine 05/05/2025 7:5 1 PM EDT URINALYSIS W/REFLEX TO MICROSCOPIC & CULTURE Routine 05/05/2025 7:[address] ABDOMEN PELVIS WO CONTRAST STAT 05/05/2025 6:12 PM EDT RAPID COVID-19, FLU A, FLU B & RSV RNA PCR, SYMPTOMATIC (ED ONLY) STAT 05/05/2025 5:40 PM EDT XR CHEST 2 VW STAT 05/05/2025 5:11 PM EDT COMPREHENSIVE METABOLIC PANEL STAT 05/05/2025 4:51 PM EDT CBC AUTO DIFFERENTIAL STAT 05/05/2025 4:51 PM EDT ECG 12-LEAD STAT 05/05/2025 4:22 PM EDT HEART & VASCULAR - SCANNED 05/05/2025 PATHOLOGY - SCANNED 05/05/2025 from Last 3 Months Results * Due to [place] state law, this organization might not be sharing negative HIV tests. * Comprehensive Metabolic Panel, Outside Lab (06/06/2025 3:36 PM EST) Blood Structure of peripheral vein / Unknown us Paul Haas MD LAB BLOOD ORDERABLES Final Resu lt * CBC Auto Differential, Outside Lab (06/06/2025 3:36 PM EST) Blood Structure of peripheral vein / Unknown Paul Haas MD LAB BLOOD ORDERABLES Final Resu lt * Wound Care - ED (05/26/2025 2:16 PM EDT) Narrative Jeremie Medina MD - 05/26/2025 2:16 PM EDT Jeremie Medina MD 06/11/2025 6:03 AM Wound Care - ED Date/Time: 05/26/2025 2:16 PM Performed by: Jeremie Medina MD Authorized by: Jeremie Medina MD Consent: Consent given by: Patient Pre-procedure details: Preparation: Patient was prepped and draped in usual sterile fashion Anesthesia (see MAR for exact dosages): Anesthesia method: None Procedure details: Indications: open wounds Wound exploration location: abdomen Dressing: Dressing applied: Xeroform 1x8 (surgicel, sterile central line dressing) Post-procedure details: Patient tolerance of procedure: Tolerated well, no immediate complications us Jeremie Medina MD IN CLINIC/BEDSIDE ORDERABLES Fin al Result * CT Abdomen Pelvis W Contrast (05/24/2025 1:03 PM EDT) Only the most recent of3 resultswithin the time period is included. Anatomical Region Laterality Modality Body Computed Tomogra phy 05/25/2025 11:4 8 AM EDT Impressions 05/25/2025 11:55 AM EDT Significantly decreased size of a right hepatic lobe abscess with several residual locules noted, the largest measuring 2.3 cm. If additional cross-sectional imaging is performed on this young patient in the future, only a CT of the abdomen should be performed as images of the pelvis result in increased radiation dose with no additional diagnostic information. If this radiology report contains a blank impression section, it is an incomplete radiology report. Please contact the interpreting radiologist or applicable radiology division as soon as possible to obtain the completed interpretation. Workstation ID: [id number] Narrative 05/25/2025 11:55 AM EDT EXAMINATION: CT ABDOMEN PELVIS W CONTRAST INDICATION: Drain output decreased, evaluate collection. TECHNIQUE: Images of the abdomen and pelvis were obtained with intravenous contrast. Coronal and sagittal reformats were generated. COMPARISON: MRI of the abdomen from 05/15/2025. FINDINGS: LOWER THORAX: The visualized lung bases are clear. HEPATOBILIARY: There is a right-sided percutaneous drainage catheter within the liver. The previously visualized liver collection has significantly decreased in size, with some residual individual locules present, the largest measuring 2.3 cm (series 3, image 41). No new liver lesion. No radiopaque cholelithiasis. No biliary ductal dilatation. Patent portal and hepatic veins. SPLEEN: No splenomegaly. PANCREAS: No focal masses or ductal dilatation. ADRENAL GLANDS: No adrenal nodules. KIDNEYS/URETERS: No hydronephrosis, calculi, or solid mass lesions. GI TRACT: No distention or wall thickening. PERITONEUM/RETROPERITONEUM: No ascites or free air. LYMPH NODES: Prominent josé miguel hepatis lymph nodes, reactive. VESSELS: Unremarkable. PELVIC ORGANS/BLADDER: Unremarkable. BONES AND SOFT TISSUES: Unremarkable. Resulting Agency Comment [id number] Procedure Note Emir Dickerson MD - 05/25/2025 EXAMINATION: CT ABDOMEN PELVIS W CONTRAST INDICATION: Drain output decreased, evaluate collection. TECHNIQUE: Images of the abdomen and pelvis were obtained with intravenouscontrast. Coronal and sagittal reformats were generated. COMPARISON: MRI of the abdomen from 05/15/2025. FINDINGS: LOWER THORAX: The visualized lung bases are clear. HEPATOBILIARY: There is a right-sided percutaneous drainage catheterwithin the liver. The previously visualized liver collection hassignificantly decreased in size, with some residual individual loculespresent, the largest measuring 2.3 cm (series 3, image 41). No new liverlesion. No radiopaque cholelithiasis. No biliary ductal dilatation. Patentportal and hepatic veins. SPLEEN: No splenomegaly. PANCREAS: No focal masses or ductal dilatation. ADRENAL GLANDS: No adrenal nodules. KIDNEYS/URETERS: No hydronephrosis, calculi, or solid mass lesions. GI TRACT: No distention or wall thickening. PERITONEUM/RETROPERITONEUM: No ascites or free air. LYMPH NODES: Prominent josé miguel hepatis lymph nodes, reactive. VESSELS: Unremarkable. PELVIC ORGANS/BLADDER: Unremarkable. BONES AND SOFT TISSUES: Unremarkable. IMPRESSION: Significantly decreased size of a right hepatic lobe abscess with severalresidual locules noted, the largest measuring 2.3 cm. If additional cross-sectional imaging is performed on this young patientin the future, only a CT of the abdomen should be performed as images ofthe pelvis result in increased radiation dose with no additionaldiagnostic information. If this radiology report contains a blank impression section, it is anincomplete radiology report. Please contact the interpreting radiologistor applicable radiology division as soon as possible to obtain thecompleted interpretation. Workstation ID: [id number] Francesca Fitzgerald TITLE SEARCH MANAGER IMG CT PROCEDURES Final Result * (ABNORMAL) CBC Auto Differential (05/22/2025 5:33 AM EDT) Only the most recent of12 resultswithin the time period is included. WBC 8.9 3.8 - 10.8 10*3/uL 05/22/2025 5:59 AM EDT [facility] RBC 4.27 4.20 - 5.80 10*6/uL 05/22/2025 5:59 AM EDT [facility] Hemoglobin 12.2(L) 13.2 - 17.1 g/dL 05/22/2025 5:59 AM EDT [facility] Hematocrit 37.4(L) 38.5 - 50.0 % 05/22/2025 5:59 AM EDT [email or web address] MCV 87.6 80.0 - 100.0 fL 05/22/2025 5:59 AM EDT [facility] MCH 28.6 27.0 - 33.0 pg 05/22/2025 5:59 AM EDT [facility] MCHC 32.6 32.0 - 36.0 g/dL 05/22/2025 5:59 AM EDT [facility] RDW 12.4 11.0 - 15.0 % 05/22/2025 5:59 AM EDT [facility] Platelets 484(H) 140 - 400 10*3/uL 05/22/2025 5:59 AM EDT [facility] MPV 7.9 7.5 - 12.5 fL 05/22/2025 5:59 AM EDT [facility] Neutrophil % 67.3 % 05/22/2025 5:59 AM EDT [facility] Immature Grans % 1.9(H) 0.0 - 0.9 % 05/22/2025 5:59 AM EDT [facility] Lymphocyte % 20.7 % 05/22/2025 5:59 AM EDT [facility] Monocyte % 5.6 % 05/22/2025 5:59 AM EDT [facility] Eosinophil % 3.8 % 05/22/2025 5:59 AM EDT [facility] Basophil % 0.7 % 05/22/2025 5:59 AM EDT [facility] Neutrophil # 5.97 1.50 - 7.80 10*3/uL 05/22/2025 5:59 AM EDT [facility] Immature Grans # 0.17(H) <=0.03 10*3/uL 05/22/2025 5:59 AM EDT [facility] Lymphocyte # 1.80 0.85 - 3.90 10*3/uL 05/22/2025 5:59 AM EDT [facility] Monocyte # 0.50 0.20 - 0.95 10*3/uL 05/22/2025 5:59 AM EDT [facility] Eosinophil # 0.30 0.02 - 0.50 10*3/uL 05/22/2025 5:59 AM EDT [facility] Basophil # 0.10 0.00 - 0.20 10*3/uL 05/22/2025 5:59 AM EDT [employer] [facility] nRBC % 0.0 /100 WBCs 05/22/2025 5:59 AM EDT [facility] nRBC # <0.01 <0.01 10*3/uL 05/22/2025 5:59 AM EDT [employer] [facility] Blood Structure of peripheral vein / Unknown Venipuncture / Unknown 05/22/2025 5:33 AM EDT 05/22/2025 5:49 AM EDT Arielle Ahuja MD LAB BLOOD ORDERABLES Final Result Performing Organization Address City/[facility] Co de Phone Number [facility] [address] [place] [address] * Magnesium (05/22/2025 5:33 AM EDT) Only the most recent of8 resultswithin the time period is included. MG 2.4 1.6 - 2.4 mg/dL 05/22/2025 6:29 AM EDT [facility] Blood Structure of peripheral vein / Unknown Venipuncture / Unknown 05/22/2025 5:33 AM EDT 05/22/2025 5:49 AM EDT Arielle Ahuja MD LAB BLOOD ORDERABLES Final Result Performing Organization Address [facility] de Phone Number [facility]ReplySend[facility] [address] [place] [address], * (ABNORMAL) Hepatic function panel (05/22/2025 5:33 AM EDT) Only the most recent of2 resultswithin the time period is included. Total Protein 8.1(H) 6.0 - 8.0 g/dL 05/22/2025 12:00 PM EDT [facility] Albumin 3.8 3.5 - 5.2 g/dL 05/22/2025 12:00 PM EDT [facility] Globulin, Total 4.3(H) 2.1 - 4.2 g/dL 05/22/2025 12:00 PM EDT [facility] Bilirubin, Total 0.3 0.2 - 1.2 mg/dL 05/22/2025 12:00 PM EDT [facility]ERSym[facility]a [facility] Bilirubin, Direct 0.1 <=0.4 mg/dL 05/22/2025 12:00 PM EDT [facility] Alkaline Phosphatase 182(H) 35 - 129 U/L 05/22/2025 12:00 PM EDT [facility]ENTERReplySend[facility] AST 190(H) 10 - 40 U/L 05/22/2025 12:00 PM EDT [facility] ALT 383(H) 10 - 40 U/L 05/22/2025 12:00 PM EDT [facility]ENTERReplySend[facility] Bilirubin, Indirect 0.20 <=0.70 mg/dL 05/22/2025 12:00 PM EDT [facility]ENTERReplySendSELECT [facility] A/G Ratio 0.9(L) 1.5 - 3.0 05/22/2025 12:00 PM EDT [facility]ENTERReplySend[facility] Blood Structure of peripheral vein / Unknown Venipuncture / Unknown 05/22/2025 5:33 AM EDT 05/22/2025 5:49 AM EDT us Miranda Cardenas MD LAB BLOOD ORDERABLES Final Res ult [facility] [address] [place] [address], * Renal Function Panel (05/22/2025 5:33 AM EDT) Only the most recent of6 resultswithin the time period is included. NA 139 135 - 145 mmol/L 05/22/2025 6:29 AM EDT [facility] CENTERc8appsIL [facility] K 4.2 3.5 - 5.3 mmol/L 05/22/2025 6:29 AM EDT [facility] Cl 104 97 - 110 mmol/L 05/22/2025 6:29 AM EDT [facility]ENTERReplySend[facility] CO2 25 22 - 32 mmol/L 05/22/2025 6:29 AM EDT [facility] Anion Gap 10 5 - 15 05/22/2025 6:29 AM EDT [facility]ENTERReplySendSELECT [facility] Glucose 98 65 - 99 mg/dL 05/22/2025 6:29 AM EDT [facility] BUN 16 7 - 23 mg/dL 05/22/2025 6:29 AM EDT [facility] Creatinine 0.88 0.60 - 1.30 mg/dL 05/22/2025 6:29 AM EDT [facility] Calcium 9.7 8.6 - 10.5 mg/dL 05/22/2025 6:29 AM EDT [facility] Phosphorus 3.8 2.5 - 4.5 mg/dL 05/22/2025 6:29 AM EDT [facility] Albumin 3.8 3.5 - 5.2 g/dL 05/22/2025 6:29 AM EDT [facility] eGFR >90 >=60 mL/min/1. 73m2 05/22/2025 6:29 AM EDT [facility] Comment:The estimated glomer ular filtration rate (eGFR) is calculated using a new formula developed by the NKF-ASN task force to eliminate race-based correction factors. The new formula uses serum/plasma creatinine, age, and gender to determine eGFR. A value below 60mls/min might indicate kidney disease and will be flagged. For additional information, see Mark et al, Am J Kidney Dis. 2021;79(2):268- 288, A Unifying Approach for GFR estimation: Recommendations of the NKF-ASN Task Force on Reassessing the Inclusion of Race in Diagnosing Kidney Disease . Blood Structure of peripheral vein / Unknown Venipuncture / Unknown 05/22/2025 5:33 AM EDT 05/22/2025 5:49 AM EDT us Arielle Ahuja MD LAB BLOOD ORDERABLES Final Result [email or web address] [address] [place] [address], * Type and Screen (05/21/2025 6:29 AM EDT) Only the most recent of4 resultswithin the time period is included. ABO Blood Type B 05/21/2025 7:45 AM EDT [facility] RH Type Positive 05/21/2025 7:45 AM EDT [facility] Expiration Date/Time 2025-05-24 23:59 05/21/2025 7:45 AM EDT [facility] Antibody Screen Negative 05/21/2025 7:45 AM EDT [facility] Blood Structure of peripheral vein / Unknown Venipuncture / Unknown 05/21/2025 6:29 AM EDT 05/21/2025 6:29 AM EDT Arielle Ahuja MD LAB BLOOD BANK TEST ORDERA BLES Final Result [facility] [address] [place] [address], * X-Ray Chest 1 View (05/21/2025 1:08 AM EDT) Anatomical Region Laterality Modality Body Computed Radiogr aphy 05/22/2025 3:27 PM EDT Impressions 05/22/2025 3:31 PM EDT Left PICC line. Tip in the right atrium. Pigtail catheter at the right lobe of the liver. Otherwise negative. If this radiology report contains a blank impression section, it is an incomplete radiology report. Please contact the interpreting radiologist or applicable radiology division as soon as possible to obtain the completed interpretation. Workstation ID: [id number] Narrative 05/22/2025 3:31 PM EDT COMPARISON: 05/05/2025 FINDINGS AND Resulting Agency Comment [id number] Procedure Note Delio Campos MD - 05/22/2025 COMPARISON: 05/05/2025 FINDINGS AND IMPRESSION: Left PICC line. Tip in the right atrium. Pigtail catheter at the rightlobe of the liver. Otherwise negative. If this radiology report contains a blank impression section, it is anincomplete radiology report. Please contact the interpreting radiologistor applicable radiology division as soon as possible to obtain thecompleted interpretation. Workstation ID: [id number] us Juana MONTE IMG XR PROCEDURES Final Resul t * SMOKING PIPE MOUNTER PICC and Midline (05/21/2025 12:50 AM EDT) Elisabet Malolry RN - 05/21/2025 12:50 AM EDT Elisabet Erazo RN 05/21/2025 1:49 AM PICC line insertion Date/Time: 05/21/2025 12:50 AM Performed by: Elisabet Erazo RN Provider type: External RN Vendor Reason for Insertion: intravenous antibiotics Successful placement: yes [place] Protocol Patient identity confirmed: Name and with patient Written consent obtained?: yes Procedure consent matches procedure to be performed: Yes All relevant documents/tests are correctly identified, labeled, and matched to patient: Yes Relevant tests/ Imaging studies available/reviewed: Yes Correct site marked: N/A Required blood products, implants, devices and special equipment available: Yes Immediately prior to the procedure a time out was called: Yes Pre-Procedure Central Line Bundle Sterile barrier technique: All Elements of full barrier protection used Skin preparation: Chlorhexidine Ultrasound: Sterile sheath and gel used Site Assessment Vein Accessed: Left basilic vein Initial Arm Circumference (cm): 31 Procedure Details Local Anesthetic: Injectable Ultrasound guidance: yes Number of attempts: 1 Blood return in all lumens?: Yes All lumens flush freely?: Yes Catheter Secured: Catheter securement device Device Details Catheter Type: Bard PowerPICC Sherlock ECG Tip Catheter Lumens: Double lumen Catheter Size (fr): 5 Lot #: [id number] Catheter Total Length (cm): 48 Catheter External Length (cm): 2 Catheter to Vessel Ratio (%): 33 Post-Procedure Central Line Bundle Guidewire Removal Confirmed?: Yes All Ports Capped?: Yes Verification of Line Placement: Chest x-ray Dressing Applied: Antimicrobial Post-Procedure Details Patient tolerance of procedure: Tolerated with difficulty Significant events: Difficulty passing catheter Plan: PICC requires X-ray confirmation before use Handoff Report Given to: Paula Yuen RN Comments: DL PICC placed in the left basilic vein x1 attempt using ultrasound guidance after consent obtained from patient and bedside timeout done with primary nurse. Patient tolerated well despite some difficulty threading PICC past shoulder area. Unable to use 3CG to determine PICC tip placement so chest xray done for confirmation prior to use. Xray showed tip in right atrium. Consulted with covering provider Juana MONTE and obtained order to retract PICC 2cm. PICC retracted and resecured with new sterile dressing. Patient tolerated well with no immediate complications. us Miranda Cardenas MD IV THERAPY ORDERABLES Final Re sult * IR Abscess Drain (05/17/2025 12:41 PM EDT) Anatomical Region Laterality Modality Body X-Ray Angiograph y 05/17/2025 12:5 7 PM EDT Impressions 05/26/2025 5:51 PM EDT Percutaneous placement of a 12 Iranian drainage catheter into right lobe of liver, yielding 10 mL of purulent fluid. Plan: 1. Access site management: Sterile adhesive dressing applied 2. Anticoagulation/antiplatelet reinitiation: Levonox if indicated can be re- initiated after 12 hrs. 3. Tube/drain/catheter management: 10 cc, Saline flush 12 hrly. 4. Clinic follow-up: care per primary team. PROCEDURE SUMMARY: - Visceral- liver drainage catheter placement under ultrasound guidance - Additional procedure(s): None PROCEDURE DETAILS: Pre-procedure Consent: Informed consent for the procedure including risks, benefits and alternatives was obtained and time-out was performed prior to the procedure. Preparation: The site was prepared and draped using maximal sterile barrier technique including cutaneous antisepsis. Anesthesia/sedation Level of anesthesia/sedation: Moderate sedation (conscious sedation) Anesthesia/sedation administered by: Radiology nursing staff or independent trained observer under attending supervision with continuous monitoring of the patient's level of consciousness and physiologic status Total intra-service sedation time (minutes): 66 Drainage catheter placement The patient was positioned supine. Initial imaging was performed. Local anesthesia was administered. The fluid collection was accessed using an access needle followed by wire insertion and serial dilation and a drainage catheter was placed. Position of the drainage catheter within the fluid collection was confirmed. Initial imaging findings: loculated collection with dense echogenic content noted in near josé miguel hepatis extending into right lobe of liver. Access route: Percutaneous Drainage catheter placed: Catheter Drainage All-Purpose and Nephrostomy Locking Pigtail [id number] Skater Drain size (Fr): 12 External catheter securement: Non-absorbable suture and adhesive anchoring device Drainage catheter contrast injection: No Final imaging findings: Partial drainage of the fluid collection Contrast Contrast agent: None Contrast volume (mL): 0 Additional Details Additional description of procedure: None Registry event: V/3/f Device used: None Equipment details: None Specimens removed: 10 mL of purulent fluid. Aspirated fluid was sent for analysis. Estimated blood loss (mL): Less than 10 Standardized report: [email or web address]_v3.1 Attestation Signer name: Epi Orlando I attest that I was present for the entire procedure. I reviewed the stored images and agree with the report as written. I, Epi Orlando, have reviewed the examination and concur with the findings as reported or so edited. Trainee: Rafat Zamarripa If this radiology report contains a blank impression section, it is an incomplete radiology report. Please contact the interpreting radiologist or applicable radiology division as soon as possible to obtain the completed interpretation. Workstation ID: [id number] Narrative 05/26/2025 5:51 PM EDT PROCEDURE: Drainage catheter placement Procedural Personnel Attending physician(s): Epi Orlando Fellow physician(s): None Resident physician(s): Rafat dudley Advanced practice provider(s): None Pre-procedure diagnosis: liver abscess Post-procedure diagnosis: Same Indication: Suspected abscess Additional clinical history: lap appendectomy at OSH 05/06/25 who presented with worsening abdominal pain. Abdominal imaging with large multiloculated hepatic abscess. IR is consulted for drain placement Complications: No immediate complications. Resulting Agency Comment [id number] Procedure Note Epi Simeon MD - 05/26/2025 PROCEDURE: Drainage catheter placement Procedural Personnel Attending physician(s): Epi Orlando Fellow physician(s): None Resident physician(s): Rafat dudley Advanced practice provider(s): None Pre-procedure diagnosis: liver abscess Post-procedure diagnosis: Same Indication: Suspected abscess Additional clinical history: lap appendectomy at OSH 05/06/25 whopresented with worsening abdominal pain. Abdominal imaging with largemultiloculated hepatic abscess. IR is consulted for drain placement Complications: No immediate complications. IMPRESSION: Percutaneous placement of a 12 Iranian drainage catheter into right lobe ofliver, yielding 10 mL of purulent fluid. Plan: 1. Access site management: Sterile adhesive dressing applied 2. Anticoagulation/antiplatelet reinitiation: Levonox if indicated can willis- initiated after 12 hrs. 3. Tube/drain/catheter management: 10 cc, Saline flush 12 hrly. 4. Clinic follow-up: care per primary team. PROCEDURE SUMMARY: - Visceral- liver drainage catheter placement under ultrasound guidance - Additional procedure(s): None PROCEDURE DETAILS: Pre-procedure Consent: Informed consent for the procedure including risks, benefits andalternatives was obtained and time-out was performed prior to theprocedure. Preparation: The site was prepared and draped using maximal sterilebarrier technique including cutaneous antisepsis. Anesthesia/sedation Level of anesthesia/sedation: Moderate sedation (conscious sedation) Anesthesia/sedation administered by: Radiology nursing staff orindependent trained observer under attending supervision with continuousmonitoring of the patient's level of consciousness and physiologicstatus Total intra-service sedation time (minutes): 66 Drainage catheter placement The patient was positioned supine. Initial imaging was performed. Localanesthesia was administered. The fluid collection was accessed using anaccess needle followed by wire insertion and serial dilation and adrainage catheter was placed. Position of the drainage catheter within thefluid collection was confirmed. Initial imaging findings: loculated collection with dense echogeniccontent noted in near josé miguel hepatis extending into right lobe of liver. Access route: Percutaneous Drainage catheter placed: Catheter Drainage All-Purpose and NephrostomyLocking Pigtail [id number] Skater Drain size (Fr): 12 External catheter securement: Non-absorbable suture and adhesive anchoringdevice Drainage catheter contrast injection: No Final imaging findings: Partial drainage of the fluid collection Contrast Contrast agent: None Contrast volume (mL): 0 Additional Details Additional description of procedure: None Registry event: V/3/f Device used: None Equipment details: None Specimens removed: 10 mL of purulent fluid. Aspirated fluid was sent foranalysis. Estimated blood loss (mL): Less than 10 Standardized report: [email or web address]_v3.1 Attestation Signer name: Epi Orlando I attest that I was present for the entire procedure. I reviewed thestored images and agree with the report as written. I, Epi Merinoueira, have reviewed the examination and concur with thefindings as reported or so edited. Trainee: Rafat Zamarripa If this radiology report contains a blank impression section, it is anincomplete radiology report. Please contact the interpreting radiologistor applicable radiology division as soon as possible to obtain thecompleted interpretation. Workstation ID: [id number] Perez Olmedo MD IMG IR PROCEDURES Final R esult * Anaerobic Culture (05/17/2025 12:17 PM EDT) Culture No anaerobes isolated. 05/23/2025 7:23 PM EDT [facility] Abscess Liver structure / Unknown Non-Blood Collection / Unknown 05/17/2025 12:17 PM EDT 05/17/2025 1:11 PM EDT Narrative [facility] - 05/23/2025 7:23 PM EDT [facility] Received Date: MICRO NUMBER: [id number] SPECIMEN QUALITY: Adequate SOURCE: ABSCESS LIVER STATUS: FINAL Lia Sorensen NP LAB MICROBIOLOGY - GENERAL ORDERABLES Final Result [address], [place] [address], [place] [phone] [facility] [employer] [address], [place] [address], [place] [phone] * (ABNORMAL) Aerobic Culture w/Gram Stain (05/17/2025 12:17 PM EDT) Culture Results Updated 7:58 AM EDT [facility] Culture Streptococcus intermedius(A) 05/20/2025 7:58 AM EDT [facility] Comment: Susceptibility testing not routinely performed on this isolate. Light growth of Streptococcus intermedius Gram Stain Many White Blood Cells Seen 05/20/2025 7:58 AM EDT [facility] Gram Stain No organisms seen 05/20/2025 7:58 AM EDT [facility] Abscess Liver structure / Unknown Non-Blood Collection / Unknown 05/17/2025 12:17 PM EDT 05/17/2025 1:11 PM EDT [facility] [place] - 05/20/2025 7:58 AM EDT [facility] Received Date: MICRO NUMBER: [id number] SPECIMEN QUALITY: Adequate SOURCE: ABSCESS LIVER STATUS: FINAL Lia Sorensen NP LAB MICROBIOLOGY - GENERAL ORDERABLES Final Result [facility] [place] [address] [facility] [address] Floor, [place] [address], [place] [phone] [facility] [address], [place] [address], [place] [phone] * Fungus Culture w/TIEN Stain (05/17/2025 12:17 PM EDT) Culture No fungal growth at 4 Weeks 06/15/2025 8:50 AM EST [facility] TIEN Stain No Fungal Elements Seen 06/15/2025 8:50 AM EST [facility] Abscess Liver structure / Unknown Non-Blood Collection / Unknown 05/17/2025 12:17 PM EDT 05/17/2025 1:11 PM EDT Narrative [facility] [place] - 06/15/2025 8:50 AM EST [facility] Received Date: MICRO NUMBER: [id number] SPECIMEN QUALITY: Adequate SOURCE: ABSCESS LIVER STATUS: FINAL Lia Sorensen TITLE SEARCH MANAGER LAB MICROBIOLOGY - GENERAL ORDERABLES Final Result Performing Organization Address City/[facility]/ZIP Co de Phone Number [facility] [address] [facility] [address], [place] [address], [place] [phone] [facility] [address] [facility] [address], [place] [address], [place] [phone] * Lavender Top (05/17/2025 7:01 AM EDT) Extra Tube Hold for add-ons. 05/17/2025 11:05 AM EDT [facility] Comment:Auto resulted. Blood Structure of peripheral vein / Unknown 05/17/2025 7:01 AM EDT 05/17/2025 7:01 AM EDT Arielle Ahuja MD LAB BLOOD ORDERABLES Final Result [facility] [address] [place] [address], * (ABNORMAL) Iron Saturation (05/17/2025 6:21 AM EDT) Iron Saturation 30 20 - 50 % 7:31 AM EDT [facility] Iron 39(L) 45 - 160 ug/dL 05/17/2025 7:31 AM EDT [facility] Transferrin 104(L) 200 - 360 mg/dL 05/17/2025 7:31 AM EDT [facility] Total Iron Binding Capacity 130(L) 255 - 450 ug/dL 05/17/2025 7:31 AM EDT [facility] Blood Structure of peripheral vein / Unknown Venipuncture / Unknown 05/17/2025 6:21 AM EDT 05/17/2025 6:51 AM EDT Arielle Ahuja MD LAB BLOOD ORDERABLES Final Result Performing Organization Address [facility] de Phone Number [facility] [address] [place] [address], * PTT (05/17/2025 6:21 AM EDT) Only the most recent of3 resultswithin the time period is included. aPTT 30.5 23.0 - 32.0 Seconds 05/17/2025 7:07 AM EDT [facility] Comment: Current PTT reagent is not sensitive to detect all Lupus Anticoagulant (LA) Inhibitor Cases. If a LA is suspected, please order a Lupus Anticoagulation w/ Reflex Test which is performed at [facility] in [place], [place]. Blood Structure of peripheral vein / Unknown Venipuncture / Unknown 05/17/2025 6:21 AM EDT 05/17/2025 6:47 AM EDT Arielle Ahuja MD LAB BLOOD ORDERABLES Final Result Performing Organization Address [facility] de Phone Number [facility] [employer] CLINICAL PATHOLOGY LABORATORY [address] [place] [address], * Protime-INR (05/17/2025 6:21 AM EDT) Only the most recent of3 resultswithin the time period is included. PT 11.8 9.6 - 12.4 Seconds 05/17/2025 9:39 AM EDT [facility] [employer] CL[facility]AT[facility] INR 1.1 0.9 - 1.1 05/17/2025 9:39 AM EDT [facility] [employer] [facility] Comment:The optimal therapeu tic INR range for patients treated with Vitamin K antagonists (VKAS, e.g., Warfarin) is 2.0 to 3.5. Discuss the desired range with your doctor/care team. Blood Structure of peripheral vein / Unknown Venipuncture / Unknown 05/17/2025 6:21 AM EDT 05/17/2025 6:47 AM EDT Arielle Ahuja MD LAB BLOOD ORDERABLES Final Result Performing Organization Address City/[facility]/ZIP Co de Phone Number [facility] LABORATORY [address] [place] [address] * (ABNORMAL) Ferritin (05/17/2025 6:21 AM EDT) Ferritin 1,646.0(H) 23.0 - 336.0 ng/mL 05/17/2025 7:31 AM EDT [facility] Blood Structure of peripheral vein / Unknown Venipuncture / Unknown 05/17/2025 6:21 AM EDT 05/17/2025 6:51 AM EDT Arielle Ahuja MD LAB BLOOD ORDERABLES Final Result Performing Organization Address [facility] Co de Phone Number [employer] CL[facility]OLOG[facility] LABORATORY [address] [place] [address] * (ABNORMAL) Comprehensive Metabolic Panel (05/16/2025 6:47 AM EDT) Only the most recent of4 resultswithin the time period is included. NA 136 135 - 145 mmol/L 05/16/2025 7:47 AM EDT [employer] [facility] [employer] CL[facility]ICAL [facility]OLOG[facility]ORAT[facility] K 4.1 3.5 - 5.3 mmol/L 05/16/2025 7:47 AM EDT [employer] [facility] [employer] CL[facility]ICAL PATHOLOG[facility] LABORATORY Cl 97 97 - 110 mmol/L 05/16/2025 7:47 AM EDT [employer] [facility] [employer] [facility] LAB[facility] CO2 27 22 - 32 mmol/L 05/16/2025 7:47 AM EDT [employer] [facility] [employer] [facility] Anion Gap 12 5 - 15 05/16/2025 7:47 AM EDT [employer] [facility] [employer] [facility] Glucose 92 65 - 99 mg/dL 05/16/2025 7:47 AM EDT [facility] Creatinine 1.11 0.60 - 1.30 mg/dL 05/16/2025 7:47 AM EDT [facility] Calcium 9.4 8.6 - 10.5 mg/dL 05/16/2025 7:47 AM EDT [facility] Total Protein 7.7 6.0 - 8.0 g/dL 05/16/2025 7:47 AM EDT [facility] Albumin 3.5 3.5 - 5.2 g/dL 05/16/2025 7:47 AM EDT [facility] Bilirubin, Total 0.7 0.2 - 1.2 mg/dL 05/16/2025 7:47 AM ED [facility] Alkaline Phosphatase 159(H) 35 - 129 U/L 05/16/2025 7:47 AM EDT [facility] AST 26 10 - 40 U/L 05/16/2025 7:47 AM ED [facility] ALT 64(H) 10 - 40 U/L 05/16/2025 7:47 AM [employer] [facility] BUN 11 7 - 23 mg/dL 05/16/2025 7:47 AM [employer] [facility] eGFR >90 >=60 mL/min/1. 73m2 05/16/2025 7:47 AM EDT [facility] Comment:The estimated glomer ular filtration rate (eGFR) is calculated using a new formula developed by the NKF-ASN task force to eliminate race-based correction factors. The new formula uses serum/plasma creatinine, age, and gender to determine eGFR. A value below 60mls/min might indicate kidney disease and will be flagged. For additional information, see Jas et al, Am J Kidney Dis. 2021;79(2):268- 288, A Unifying Approach for GFR estimation: Recommendations of the NKF-ASN Task Force on Reassessing the Inclusion of Race in Diagnosing Kidney Disease . Globulin, Total 4.2 2.1 - 4.2 g/dL 05/16/2025 7:47 AM EDT [facility] A/G Ratio 0.8(L) 1.5 - 3.0 05/16/2025 7:47 AM EDT [facility] Blood Structure of peripheral vein / Unknown Venipuncture / Unknown 05/16/2025 6:47 AM EDT 05/16/2025 7:13 AM EDT us Arielle Ahuja MD LAB BLOOD ORDERABLES Final Result [facility] [address] [place] [address], [place] * MRI Liver W WO Contrast (05/15/2025 12:40 AM EDT) Anatomical Region Laterality Modality Abdomen, Liver Magnetic Resonan ce 05/16/2025 Impressions 05/16/2025 10:12 AM EDT Right hepatic lobe multilocular abscess measuring up to 8.6 cm, with thrombosis of several segment right portal vein radicles. There is no reason on this examination to suspect an underlying liver mass/neoplasm. If there is persistent clinical concern for an underlying liver mass (e.g. elevated tumor markers), repeat MRI can be performed following resolution of the hepatic abscess. If this radiology report contains a blank impression section, it is an incomplete radiology report. Please contact the interpreting radiologist or applicable radiology division as soon as possible to obtain the completed interpretation. Workstation ID: [id number] Narrative 05/16/2025 10:12 AM EDT EXAMINATION: MRI LIVER W WO CONTRAST INDICATION: Concern for liver mass in the setting of liver abscess. TECHNIQUE: Multiplanar, multisequential MRI of the abdomen was performed without intravenous contrast according to standard departmental protocol. Subsequently, a weight-based dose of intravenous Gadolinium-based contrast agent was administered, followed by acquisition of images with contrast. COMPARISON: CT of the abdomen and pelvis from 05/13/2025. FINDINGS: HEPATOBILIARY: Heterogeneously T2 intermediate mass centered within hepatic segment V measuring up to 8.6 cm, multiloculated in appearance. Central portions of the mass demonstrate markedly restricted diffusion with rim enhancement on postcontrast images, as well as edema of the adjacent liver parenchyma. Findings are in keeping with hepatic abscess. No additional liver lesion is identified. Markedly heterogeneous arterial enhancement throughout the right hepatic lobe due to perfusional changes and reactive hyperemia. No diffuse hepatic parenchymal signal abnormality. There are areas of mild biliary ductal dilatation within hepatic segments V and , likely due to mass effect by the large hepatic abscess. Several segment right portal vein radicles are also thrombosed. Otherwise, there is no biliary ductal dilatation and the remainder of the portal venous system is patent. No cholelithiasis. Diffuse gallbladder wall edema, likely reactive. SPLEEN: Normal. PANCREAS: No mass or ductal dilatation. ADRENAL GLANDS: No nodules. KIDNEYS: No hydronephrosis or solid mass lesions. BOWEL/MESENTERY: Normal. PERITONEUM: No upper abdominal ascites. LYMPH NODES: Prominent josé miguel hepatis lymph nodes, likely reactive. There are prominent mediastinal lymph nodes as well (series 400), presumably reactive as well. VESSELS: Unremarkable. BONES: Unremarkable bone marrow signal. EXTRA-ABDOMINAL FINDINGS: Trace bilateral pleural effusions. Resulting Agency Comment [id number] Procedure Note Emir Dickerson MD - 05/16/2025 EXAMINATION: MRI LIVER W WO CONTRAST INDICATION: Concern for liver mass in the setting of liver abscess. TECHNIQUE: Multiplanar, multisequential MRI of the abdomen was performedwithout intravenous contrast according to standard departmental protocol.Subsequently, a weight-based dose of intravenous Gadolinium-based contrastagent was administered, followed by acquisition of images with contrast. COMPARISON: CT of the abdomen and pelvis from 05/13/2025. FINDINGS: HEPATOBILIARY: Heterogeneously T2 intermediate mass centered withinhepatic segment V measuring up to 8.6 cm, multiloculated in appearance.Central portions of the mass demonstrate markedly restricted diffusionwith rim enhancement on postcontrast images, as well as edema of theadjacent liver parenchyma. Findings are in keeping with hepatic abscess.No additional liver lesion is identified. Markedly heterogeneous arterialenhancement throughout the right hepatic lobe due to perfusional changesand reactive hyperemia. No diffuse hepatic parenchymal signal abnormality. There are areas of mild biliary ductal dilatation within hepatic segmentsV and , likely due to mass effect by the large hepatic abscess. Severalsegment right portal vein radicles are also thrombosed. Otherwise,there is no biliary ductal dilatation and the remainder of the portalvenous system is patent. No cholelithiasis. Diffuse gallbladder walledema, likely reactive. SPLEEN: Normal. PANCREAS: No mass or ductal dilatation. ADRENAL GLANDS: No nodules. KIDNEYS: No hydronephrosis or solid mass lesions. BOWEL/MESENTERY: Normal. PERITONEUM: No upper abdominal ascites. LYMPH NODES: Prominent josé miguel hepatis lymph nodes, likely reactive. Thereare prominent mediastinal lymph nodes as well (series 400), presumablyreactive as well. VESSELS: Unremarkable. BONES: Unremarkable bone marrow signal. EXTRA-ABDOMINAL FINDINGS: Trace bilateral pleural effusions. IMPRESSION: Right hepatic lobe multilocular abscess measuring up to 8.6 cm, withthrombosis of several segment right portal vein radicles. There is noreason on this examination to suspect an underlying liver mass/neoplasm. If there is persistent clinical concern for an underlying liver mass (e.g.elevated tumor markers), repeat MRI can be performed following resolutionof the hepatic abscess. If this radiology report contains a blank impression section, it is anincomplete radiology report. Please contact the interpreting radiologistor applicable radiology division as soon as possible to obtain thecompleted interpretation. Workstation ID: [id number] us Arielle Ahuja MD IMG MRI PROCEDURES Final R esult * X-Ray Abdomen 2 Views with Chest 1 View (05/14/2025 3:29 PM EDT) Anatomical Region Laterality Modality Body Computed Radiogr aphy 05/15/2025 7:38 AM EDT Impressions 05/15/2025 7:40 AM EDT Mild diffuse bowel dilatation. Query aerophagia versus mild ileus. If this radiology report contains a blank impression section, it is an incomplete radiology report. Please contact the interpreting radiologist or applicable radiology division as soon as possible to obtain the completed interpretation. Workstation ID: [id number] Narrative 05/15/2025 7:40 AM EDT COMPARISON: None FINDINGS: Minor nonspecific gaseous throughout loops of large and small bowel. Slight gastric dilatation as well. No free air. No undue fecal residue, unusual gas or calcific densities. No organomegaly . Chest negative. Resulting Agency Comment [id number] Procedure Note Delio Campos MD - 05/15/2025 COMPARISON: None FINDINGS: Minor nonspecific gaseous throughout loops of large and small bowel.Slight gastric dilatation as well. No free air. No undue fecal residue,unusual gas or calcific densities. No organomegaly . Chest negative. IMPRESSION: Mild diffuse bowel dilatation. Query aerophagia versus mild ileus. If this radiology report contains a blank impression section, it is anincomplete radiology report. Please contact the interpreting radiologistor applicable radiology division as soon as possible to obtain thecompleted interpretation. Workstation ID: [id number] us Katia Artis MD IMG XR PROCEDURES Final Re sult * Hepatitis Panel, Acute (05/14/2025 11:50 AM EDT) Hepatitis A IgM NON-REACT [place]RAEL NON-REACT ISRAEL 05/15/2025 4:19 PM EDT [facility] Hepatitis B Surface Antigen NON-REACT [place]RAEL NON-REACT [place]RA[place] 05/15/2025 4:19 PM EDT [facility] Hepatitis B Core Antibody NON-REACT [place]RA[place] NON-REACT [place]RA[place] 05/15/2025 4:19 PM EDT [facility] Hepatitis C Antibody NON-REACT [place]RA[place] NON-REACT [place]RA[place] 05/15/2025 4:19 PM EDT [facility] Comment: HCV antibody was non-reactive. There is no laboratory evidence of HCV infection. In most cases, no further action is required. However, if recent HCV exposure is suspected, a test for HCV RNA (test code 82739) is suggested. For additional information please refer to http://education.[employer].CSID/faq/SKK15e1 (This link is being provided for informational/ educational purposes only.) For additional information, please refer to http://Rentelligence.[employer].CSID/faq/OBJ169 (This link is being provided for informational/ educational purposes only.) Blood Structure of peripheral vein / Unknown Venipuncture / Unknown 05/14/2025 11:50 AM EDT 05/14/2025 12:00 PM EDT Narrative [facility] - 05/15/2025 4:19 PM EDT [facility] Received Date:[id number] Katia Artis MD LAB BLOOD ORDERABLES Final Result [facility] [address] [facility] [address] Floor, [place] [address], [place] [phone] [facility] [address] [facility] [address], [place] [address], [place] [phone] * Phosphorus (05/14/2025 5:06 AM EDT) Phosphorus 2.8 2.5 - 4.5 mg/dL 05/14/2025 5:50 AM EDT [facility] Blood Structure of peripheral vein / Unknown Venipuncture / Unknown 05/14/2025 5:06 AM EDT 05/14/2025 5:19 AM EDT Malika Campos MD LAB BLOOD ORDERABLES Final Resul t Performing Organization Address City/[facility]/ZIP Co de Phone Number [facility] PATH[facility] LABORAT[facility] [address] [place] [address], * Gold Top (05/13/2025 1:57 PM EDT) Extra Tube Hold for add-ons. 05/13/2025 6:05 PM EDT [facility] Comment:Auto resulted. Blood Structure of peripheral vein / Unknown 05/13/2025 1:57 PM EDT 05/13/2025 1:57 PM EDT Perez Olmedo MD LAB BLOOD ORDERABLES Ira l Result [facility] [address] [place] [address], [place] * Light Green Top (05/13/2025 1:57 PM EDT) Pathologist [facility] Extra Tube Hold for add-ons. 05/13/2025 6:05 PM EDT [facility] CLINICAL PATHOLOGY LABORATORY Comment:Auto resulted. Blood Structure of peripheral vein / Unknown 05/13/2025 1:57 PM EDT 05/13/2025 1:57 PM EDT Perez Olmedo MD LAB BLOOD ORDERABLES Ira l Result [facility] CLINICAL PATHOLOGY LABORATORY [address] [place] [address], [place] * Hepatitis C Antibody w/Reflex to HCV RNA, Quantitative PCR (05/13/2025 1:49 PM EDT) Pathologist [facility] Hepatitis C Antibody NON-REACT ISRAEL NON-REACT ISRAEL 05/15/2025 9:13 PM EDT [employer] [facility] Comment: HCV antibody was non-reactive. There is no laboratory evidence of HCV infection. In most cases, no further action is required. However, if recent HCV exposure is suspected, a test for HCV RNA (test code 19812) is suggested. For additional information please refer to http://education.[employer]/faq/SOX41o3 (This link is being provided for informational/ educational purposes only.) Blood Structure of peripheral vein / Unknown Venipuncture / Unknown 05/13/2025 1:49 PM EDT 05/13/2025 2:05 PM EDT Narrative [facility] - 05/15/2025 9:13 PM EDT [facility] Received Date:[id number] Perez Olmedo MD LAB BLOOD ORDERABLES Ira l Result [address], [place] [address], [place] [phone] [facility] [address], [place] [address], [place] [phone] * Lactic Acid (w/Repeat if >2) (05/13/2025 7:42 AM EDT) Lactic Acid 1.2 0.5 - 2.0 mmol/L 05/13/2025 8:04 AM EDT [facility] Blood Structure of peripheral vein / Unknown Venipuncture / Unknown 05/13/2025 7:42 AM EDT 05/13/2025 7:42 AM EDT us Delio Tavera MD LAB BLOOD ORDERABLES F inal Result Performing Organization Address City/[facility]/ZIP Co de Phone Number [facility] [address] [place] [address], [place] [phone] * Microscopic Urinalysis Only (05/13/2025 6:49 AM EDT) RBC, Urine 0-2 None Seen, 0-2 /HPF 05/13/2025 7:17 AM EDT [facility] WBC, Urine 0-2 None Seen, 0-2 /HPF 05/13/2025 7:17 AM EDT [facility] Squamous Epithelial Cells, Urine 0-2 /HPF 05/13/2025 7:17 AM EDT [facility] Amorphous Crystals, Urine Trace /HPF 05/13/2025 7:17 AM EDT [facility] Bacteria, Urine None Seen None Seen /HPF 05/13/2025 7:17 AM EDT [facility] Urine Urine specimen collection, clean catch / Unknown Non-Blood Collection / Unknown 05/13/2025 6:49 AM EDT 05/13/2025 7:04 AM EDT us Perez Paniagua MD LAB URINE ORDERABLES Fin al Result Performing Organization Address City/[facility]/ZIP Co de Phone Number [facility] [address] [place] [address], [place] [phone] * (ABNORMAL) Urinalysis W/Reflex to Microscopic & Culture (05/13/2025 6:49 AM EDT) Only the most recent of2 resultswithin the time period is included. Color, Urine Yellow Yellow 05/13/2025 7:04 AM EDT [facility] Clarity, Urine Clear Clear 05/13/2025 7:04 AM EDT [facility] Specific Cool[place], Urine >=1.030 1.005 - 1.030 05/13/2025 7:04 AM EDT [facility] pH, Urine 8.0 5.0 - 8.0 05/13/2025 7:04 AM EDT [facility] Protein, Urine 30(A) Negative mg/dL 05/13/2025 7:04 AM EDT [facility] Glucose, Urine Negative Negative mg/dL 05/13/2025 7:04 AM EDT [facility] Ketones, Urine Trace(A) Negative mg/dL 05/13/2025 7:04 AM EDT [facility] Bilirubin, Urine Negative Negative 05/13/2025 7:04 AM EDT [facility] Blood, Urine Negative Negative 05/13/2025 7:04 AM EDT [facility] Nitrite, Urine Negative Negative 05/13/2025 7:04 AM EDT [facility] Urobilinogen, Urine 1.0 0.2 - 1.0 E.U./dL 05/13/2025 7:04 AM EDT [facility] Leukocyte Esterase, Urine Trace(A) Negative 05/13/2025 7:04 AM EDT [facility] Urine Urine specimen collection, clean catch / Unknown Non-Blood Collection / Unknown 05/13/2025 6:49 AM EDT 05/13/2025 6:53 AM EDT Narrative [facility] - 05/13/2025 7:04 AM EDT Some urinalysis results will not meet the criteria for reflex urine culture although certain urine values may be abnormal. Additional testing can be ordered by the provider if clinically warranted. Perez Paniagua MD LAB URINE ORDERABLES Fin al Result Performing Organization Address [facility] Co de Phone Number [facility] [address] [address], [place] [phone] * Blood Culture (2nd Draw) (05/13/2025 6:45 AM EDT) Only the most recent of2 resultswithin the time period is included. Blood Culture No growth after 5 days 05/18/2025 8:05 AM EDT [facility] Blood Structure of peripheral vein / Unknown Venipuncture / Unknown 05/13/2025 6:45 AM EDT 05/13/2025 7:23 AM EDT Perez Paniagua MD LAB MICROBIOLOGY - GENER AL ORDERABLES Final Result Performing Organization Address [facility] de Phone Number [facility] [address] [address], [place] [phone] * Lipase (05/13/2025 6:45 AM EDT) Lipase 26 13 - 60 U/L 05/13/2025 7:19 AM EDT [facility] Blood Structure of peripheral vein / Unknown Venipuncture / Unknown 05/13/2025 6:45 AM EDT 05/13/2025 6:52 AM EDT Perez Paniagua MD LAB BLOOD ORDERABLES Fin al Result Performing Organization Address [facility] Co de Phone Number [facility] [address] [address], [place] [phone] * Tissue Exam - [place] only (05/06/2025 9:52 AM EDT) Tissue Exam Result SEE DETAILS 05/11/2025 12:00 AM EDT [facility] [place] Comment: FINAL DIAGNOSIS Appendix, appendectomy: Acute appendicitis. Karma Earl M.D. Electronic Signature: 05/11/2025 13:49 Clinical History Acute appendicitis with localized peritonitis without abscess, unspecified whether gangrene present, unspecified whether perforation present Microscopic Description Histologic sections show a tubular appendix lined by reactive colonic mucosa. Acute and chronic inflammation are present. Macroscopic Description Received in formalin is an intact appendix measuring 6.4 cm in length and averaging 0.6 cm in diameter. The proximal margin is sutured, the sutures are removed, and the margin is inked blue. The serosa is pickard, smooth and grossly unremarkable. No lesions, perforations or exudate are noted. Sectioning reveals a lumen containing soft pickard fecal material and measuring up to 0.6 cm in diameter. The muscular wall is pickard, grossly unremarkable and measures up to 0.2 cm in thickness. The distal tip is grossly unremarkable. Senior [employer] sections, including the proximal margin inked blue are submitted in cassette A1. Excision to formalin time: immediate; total time in formalin: 96 hours. (HG) Unless otherwise stated, all tissue is formalin-fixed and paraffin-embedded. This case was reviewed intradepartmentally. Grossing and technical work performed at [facility] ([facility], [address] [place] [address]; ; [id number]; CLIA #[id number] All professional pathology services performed at [facility] ([address] [place] [id number]; ; CLIA #[id number]) Note: Some or all of the tests utilized in this case may be laboratory developed tests (LDT's) and may use class I analyte specific reagents (ASR). These tests were developed for clinical purposes and their performance characteristics determined by [facility] on tissue fixed in 10% neutral buffered formalin. Other fixatives have not been validated, and therefore results on tissue with such fixation should be interpreted with caution and in the clinical context. [facility] are qualified under the CLIA 1988 documents to provide high-complexity clinical laboratory testing. All controls are reviewed and deemed appropriate. Tissue Appendix structure / Unknown Non-Blood Collection / Unknown 05/06/2025 9:52 AM EDT 05/08/2025 10:40 AM EDT Comment:Pre-op diagnosis: Acute appendicitis with localized peritonitis without abscess, unspecified whether gangrene present, unspecified whether perforation present [K35.30] us Sascha Trujillo MD LAB PATH/CYTO ([place]) Final Result [facility] [address] [place] [address], [place] * CT Abdomen Pelvis without Contrast (05/05/2025 6:12 PM EDT) Anatomical Region Laterality Modality Body Computed Tomogra phy 05/05/2025 7:17 PM EDT Impressions 05/05/2025 7:52 PM EDT Limited noncontrast examination. Findings which may reflect acute uncomplicated tip appendicitis. Differentiation of the appendix from adjacent bowel and urinary/vascular structures is difficult in the absence of intravenous contrast. If this radiology report contains a blank impression section, it is an incomplete radiology report. Please contact the interpreting radiologist or applicable radiology division as soon as possible to obtain the completed interpretation. Workstation ID: [id number] Narrative 05/05/2025 7:52 PM EDT COMPARISON: None FINDINGS: Evaluation of vasculature, solid organs, masses, and fluid collections is limited due to lack of intravenous contrast. Lower Thorax: No focal consolidation, pleural effusion or pneumothorax. Hepatobiliary: Liver and gallbladder are normal in size and contour. Spleen: Normal in size and contour. Pancreas: Normal in size and contour. Adrenal Glands: No nodule. Kidneys/Ureters: Normal in size and contour. No renal calculi, hydronephrosis, or perinephric fat stranding is seen. Pelvic Organ/Bladder: No significant abnormality. Peritoneum/Retroperitoneum: No ascites or free air. Lymph Nodes: No lymphadenopathy. Vessels: Normal in course and caliber. GI Tract: No distention or wall thickening. The normal caliber appendix apparently contains a 7 mm appendicolith at the tip, although this is difficult to differentiate from adjacent bowel. There may be a small amount of fat stranding about the appendiceal tip. Bones and Soft Tissues: No acute abnormality. Resulting Agency Comment [id number] Procedure Note Akhil Paz MD - 05/05/2025 COMPARISON: None FINDINGS: Evaluation of vasculature, solid organs, masses, and fluid collections islimited due to lack of intravenous contrast. Lower Thorax: No focal consolidation, pleural effusion or pneumothorax. Hepatobiliary: Liver and gallbladder are normal in size and contour. Spleen: Normal in size and contour. Pancreas: Normal in size and contour. Adrenal Glands: No nodule. Kidneys/Ureters: Normal in size and contour. No renal calculi,hydronephrosis, or perinephric fat stranding is seen. Pelvic Organ/Bladder: No significant abnormality. Peritoneum/Retroperitoneum: No ascites or free air. Lymph Nodes: No lymphadenopathy. Vessels: Normal in course and caliber. GI Tract: No distention or wall thickening. The normal caliber appendixapparently contains a 7 mm appendicolith at the tip, although this isdifficult to differentiate from adjacent bowel. There may be a smallamount of fat stranding about the appendiceal tip. Bones and Soft Tissues: No acute abnormality. IMPRESSION: Limited noncontrast examination. Findings which may reflect acute uncomplicated tip appendicitis.Differentiation of the appendix from adjacent bowel and urinary/vascularstructures is difficult in the absence of intravenous contrast. If this radiology report contains a blank impression section, it is anincomplete radiology report. Please contact the interpreting radiologistor applicable radiology division as soon as possible to obtain thecompleted interpretation. Workstation ID: [id number] Christina Perry MD [facility] PROCEDURES Final Result * Rapid COVID-19, FLU A, FLU B & RSV RNA PCR, Symptomatic (ED ONLY) (05/05/2025 5:40 PM EDT) PCR, SARS CoV-2 RNA Not Detected Not Detected CEPHEID GENEXPERT 05/05/2025 6:43 PM EDT [facility] Flu A RNA PCR Not Detected Not Detected CEPHEID GENEXPERT 05/05/2025 6:43 PM EDT [facility] Flu B RNA PCR Not Detected Not Detected CEPHEID GENEXPERT 05/05/2025 6:43 PM EDT [facility] RSV RNA PCR Not Detected Not Detected CEPKemPharmID GENEXPERT 05/05/2025 6:43 PM EDT [facility] Comment: Limitations: This RSV test is suitable for the pediatric population (less than 19 years of age) only. Performance characteristics have not been established for use with patients older than 19 years of age and immunocompromised patients. Test results must be evaluated in conjuction with other clinical data available to the physician. Swab (Nares) 05/05/2025 5:40 PM EDT 05/05/2025 5:40 PM EDT Narrative [facility] - 05/05/2025 6:43 PM EDT Methodology: The [employer] GeneXpert CoV-2/Flu/RSV plus assay is For Use Under an Emergency Use Authorization (EUA) Only with [employer]. The CoV-2/Flu/RSV plus assay is a rapid, multiplexed real-time RT-PCR assay intended for the simultaneous qualitative detection and differentiation of RNA from SARS-CoV-2, influenza A, influenza B, and Respiratory Syncytial Virus (RSV) in specimens collected from individuals suspected of a respiratory viral infection, by their healthcare provider. A positive test result for SARS-CoV-2, influenza or RSV indicates that RNA from that virus was detected. A negative test result indicates that RNA virus was not present in the specimen above the limit of detection. Therefore, a negative result does not rule out SARS-CoV-2, influenza or RSV infection and should not be used as the sole basis for treatment or other patient management decisions. us Christina Perry MD LAB BODY FLUIDS AND STOOLS ORD ERABLES Final Result [facility] [address] [place] [address], * X-Ray Chest 2 Views (05/05/2025 5:11 PM EDT) Anatomical Region Laterality Modality Body Radiographic Nichol ging 05/05/2025 6:02 PM EDT Impressions 05/05/2025 6:11 PM EDT No focal consolidation, pleural effusion or pneumothorax. Heart size normal. Pulmonary vasculature normal. No acute osseous abnormality. If this radiology report contains a blank impression section, it is an incomplete radiology report. Please contact the interpreting radiologist or applicable radiology division as soon as possible to obtain the completed interpretation. Workstation ID: [id number] Narrative 05/05/2025 6:11 PM EDT COMPARISON: 05/11/2024. FINDINGS AND Resulting Agency Comment [id number] Procedure Note Akhil Paz MD - 05/05/2025 COMPARISON: 05/11/2024. FINDINGS AND IMPRESSION: No focal consolidation, pleural effusion or pneumothorax. Heart sizenormal. Pulmonary vasculature normal. No acute osseous abnormality. If this radiology report contains a blank impression section, it is anincomplete radiology report. Please contact the interpreting radiologistor applicable radiology division as soon as possible to obtain thecompleted interpretation. Workstation ID: [id number] Christina Perry MD IMG XR PROCEDURES Final Result * ECG 12 lead (05/05/2025 4:22 PM EDT) Ventricular Rate EKG 88 BPM MUSE EKG Atrial Rate 88 BPM MUSE EKG CO Interval 138 ms MUSE EKG QRS Interval 96 ms MUSE EKG QT Interval 346 ms MUSE EKG QTC Interval 418 ms MUSE EKG P Lowpoint 27 degrees MUSE EKG R [place]point 90 degrees MUSE EKG T Wave Lowpoint 34 degrees MUSE EKG 05/05/2025 4:22 PM EDT 05/06/2025 9:32 AM EDT Impressions MUSE EKG - 05/06/2025 9:32 AM EDT Normal sinus rhythm Rightward axis Incomplete right bundle branch block Early repolarization Confirmed by Devante Finley ([id number]) on 05/06/2025 9:32:28 AM Narrative Procedure Note Devante Finley MD - 05/06/2025 IMPRESSION: Normal sinus rhythm Rightward axis Incomplete right bundle branch block Early repolarization Confirmed by Devante Finley ([id number]) on 05/06/2025 9:32:28 AM us Christina Perry MD ECG ORDERABLES Final Result MUSE EKG * PATHOLOGY - SCANNED (05/05/2025) us Onbase Scan Roel SCANNED PROCEDURES Final Resu lt * HEART & VASCULAR - SCANNED (05/05/2025) Anatomical Region Laterality Modality Other us Onbase Scan Roel SCANNED PROCEDURES Final Resu lt from Last 3 Months or Most Recently Relevant to Health Maintenance Insurance [address] [address] [facility] Advance Directives Documents on File Type Date Recorded Patient Senior It Architect Expl anation Health Care Proxy 05/22/2025 9:33 PM - Health Care Proxy 05/22/2025 2:54 PM 10- * Full Code (Latest Code Status on File) Date Activated Date Inactivated Comments 05/17/2025 12:44 PM 05/22/2025 7:18 PM * Full Code Date Activated Date Inactivated Comments 05/13/2025 4:14 PM 05/17/2025 12:44 PM Healthcare Agents on File Name Relationship Healthcare Agent Relationshi p Communication Samantha Johnson [facility] Care Agent Care Teams Microsoft Architect Relationship Specialty Start Date End Date Roberto Herron MD [address] [place] [id number] PCP - General Internal Medicine 06/16/25
--- OUTSIDE RECORDS SUMMARY | 2025-06-19 20:12 | XMS_ITS | Encounter Summary ---
Author Organization [facility] Address [address] [place] [address] Care Team Providers Care Recovery Room Nurse Name Role Phone Roberto Herron MD Primary Care Provider Encounter Details Date Type Department Care Team (Late st Contact Info) Description 06/01/2025 [employer] Leños[employer] SACVt Message [facility] [address] [place] [address] [place] [address] Emeterio Nichole PA [address] [place], [place] [phone] FMLA Social History Tobacco Use Types Packs/Day Years [...] money to get more. Never true 05/14/2025 [facility] Utilities Answer Date Recorded In the past 12 months has e electric, gas, oil, or water company [...] Info) Description 06/29/2025 8:30 AM EST Follow-Up [facility] Infectious Disease Clinic [address] [place] [address] Emergency Dispatcher: [place] [address] 08/21/2025 2:00 PM EST Lab [facility] ACC Draw Site Fifth Floor [address] [place] [address] 08/21/2025 3:00 PM EST Follow-Up [facility] ACC Building Cancer Clinic South 5th Floor [address] [place] [address] Khloe Palacios MD [address] [place] [address] documented as of this encounter Visit Diagnoses Not on filedocumented in this encounter Care Teams Recovery Room Nurse Relationship Specialty Start Date End Date Roberto Herron MD [address] [place] [address] PCP - General Internal Medicine 06/16/25 documented as of this encounter
--- OUTSIDE RECORDS SUMMARY | 2025-06-19 20:12 | XMS_ITS | Encounter Summary ---
Author Organization [facility] Address [address] [place] [address] Care Team Providers Care Sustainability Officer Name Role Phone Roberto Herron MD Primary Care Provider Encounter Details Date Type Department Care Team (Late st Contact Info) Description 06/08/2025 Edhub Message [facility] [address] [facility] Department [address] [facility] [address] GrexIt, Generic Provider [place] [address] forms Social History Tobacco Use Types Packs/Day Years [...] money to get more. Never true 05/14/2025 [facility] Utilities Answer Date Recorded In the past [...] Info) Description 06/29/2025 8:30 AM EST Follow-Up [facility] Infectious Disease Clinic [address] [place] [address] Java Mobile Developer: [place] [address] 08/21/2025 2:00 PM EST Lab [facility] ACC Draw Site Fifth Floor [address] [place] [address] 08/21/2025 3:00 PM EST Follow-Up [facility] ACC Building Cancer Clinic South 5th Floor [address] [place] [address] Khloe Palacios MD [address] [place] [address] documented as of this encounter Visit Diagnoses Not on filedocumented in this encounter Care Teams Sustainability Officer Relationship Specialty Start Date End Date Roberto Herron MD [address] [place] [address] PCP - General Internal Medicine 06/16/25 documented as of this encounter
--- OUTSIDE RECORDS SUMMARY | 2025-06-19 20:12 | XMS_ITS | Encounter Summary ---
Author Organization [facility] Address [address] [place] [address] Care Team Providers Care Music Theory Professor Name Role Phone Roberto Herron MD Primary Care Provider [phone] Reason for Visit * Reason Comments PAC Patient Request Call Back Encounter Details Date Type Department Care Team ([facility] Contact Info) Description 06/16/2025 Telephone [facility] Infectious Disease Clinic [address] [place] [address] Glass Production Machine Operator: Sarah Rivera Telephone Intake, Staff PAC Patient Request Call Back Social History Tobacco Use Types Packs/Day Years [...] money to get more. Never true 05/14/2025 [facility] Utilities Answer Date Recorded In the [...] PM EDT documented as of this encounter Miscellaneous Notes * Telephone Encounter - Odalys Oliveira - 06/16/2025 11:29 AM EST Copied from [facility] #[id number]. Topic: Request - Lab Request >> Jun 16, 2025 11:26 AM Odalys Cleaning wrote: What lab or test does patient need? CT Please redirect order for CT per pt request Where would you like to go? Brittney Fax number of Lab/Facility: [phone] documented in this encounter Plan of Treatment Upcoming Encounters Date Type Department Care Team (Late st Contact Info) Description 06/29/2025 8:30 AM EST Follow-Up [facility] Infectious Disease Clinic [address] [place] [address] Glass Production Machine Operator: [place] [address] 08/21/2025 2:00 PM EST Lab [facility] ACC Draw Site Fifth Floor [address] [place] [address] 08/21/2025 3:00 PM EST Follow-Up [facility] ACC Building Cancer Clinic South 5th Floor [address] [place] [address] Khloe Palacios MD [address] [place] [address] documented as of this encounter Visit Diagnoses Not on filedocumented in this encounter Care Teams Music Theory Professor Relationship Specialty Start Date End Date Roberto Herron MD [address] [place] [address] PCP - General Internal Medicine 06/16/25 documented as of this encounter
--- OUTSIDE RECORDS SUMMARY | 2025-06-19 20:12 | XMS_ITS | Encounter Summary ---
Author Organization [facility] Address [address] [place] [address] Care Team Providers Care Bobbin Stripper Name Role Phone Roberto Herron MD Primary Care Provider Encounter Details Date Type Department Care Team (Late st Contact Info) Description 05/16/2025 Telephone [facility] Interventional Radiology [address] [place], [place] [phone] Marlena Dave, WINNIE Social History Tobacco Use Types Packs/Day Years [...] money to get more. Never true 05/14/2025 [facility] Utilities Answer Date Recorded In the past [...] PM EDT documented as of this encounter Functional Status documented as of this encounter Plan of Treatment Upcoming Encounters Date Type Department Care Team (Late st Contact Info) Description 06/29/2025 8:30 AM EST Follow-Up [facility] Infectious Disease Clinic [address] [place] [address] Oxygraph Operator: [place] [address] 08/21/2025 2:00 PM EST Lab [facility] ACC Draw Site Fifth Floor [address] [place] [address] 08/21/2025 3:00 PM EST Follow-Up [facility] ACC Building Cancer Clinic South 5th Floor [address] [place] [address] Khloe Palacios MD [address] [place] [address] documented as of this encounter Visit Diagnoses Not on filedocumented in this encounter Care Teams Bobbin Stripper Relationship Specialty Start Date End Date Roberto Herron MD [address] [place] [address] PCP - General Internal Medicine 06/16/25 documented as of this encounter
--- OUTSIDE RECORDS SUMMARY | 2025-06-19 20:12 | XMS_ITS | Clinical Summary ---
Author Organization [facility] Address [address] [place] [address] Phone Care Team Providers Care Coating Mixer Tender Name Role Phone Unavailable Primary Care Provider Unavailabl e Allergies No known active allergies Medications albuterol HFA 108 (90 Base) MCG/ACT inhalerIndicatio ns:Asthma, unspecified asthma severity, unspecified whether complicated, unspecified whether persistent Inhale 2 puffs every 4 (four) hours as needed for wheezing or shortness of breath. 2 Units 2 4 Active Active Problems Problem Noted Date Diagnosed Date Healthy adult on routine physical examination Immunizations Immunization Administration Dates Next Due COVID-19 Pfizer, monovalent, 12+ years 2 DTaP 04/20/2006, 3,2001,08/16,2001 HPV Vaccine 9 Valent 08/07/2023,03/02/2023,01/29 Hep A, Adult 04/28/2024 Hep B, ped/adol 01/03/2002,2001,2001 HiB 07/21/2002, 2,2001,06/15 IPV 04/20/2006, 3,2001,06/15 Influenza, injectable, MDCK, preservative free, quadrivalent 04/17/2020 Influenza, injectable, quadrivalent 05/27,07/23/2012,05/21/2010,05/03 Influenza, injectable, quadr ivalent, preservative free 05/14/2021 Influenza, injectable, trivalent 04/28/2024 MMR 04/18/2005,07/21/2002 Meningococcal B Bexsero 07/15/2021,02/23/2020 Meningococcal Conj (Menactra) MCV4P 01/06/2020,1 09/19/2013 Pneumococcal Conjugate 07/21/2002,2001,2001,06/15 Tdap 01/29/2023,06/14/2013 Varicella 04/29/2007,04/11/2002 Family History Medical History Relation Name Comments Depression Father Thyroid disease Father Food allergies Father's Brother No Known Problems Father's Sister Asthma Maternal Grandfather Hypertension Maternal Grandmother Asthma Mother Hypertension Mother's Sister Depression Paternal Grandfather Colon cancer Paternal Grandmother Diabetes Paternal Grandmother Eczema Sister Food allergies Sister Relation Name Status Comments Father Father's Brother Father's Sister Maternal Grandfather Maternal Grandmother Mother Mother's Sister Paternal Grandfather Paternal Grandmother Sister Social History Tobacco Use Types Packs/Day Years Used Date Smoking Tobacco: Never Assessed Tobacco Cessation:Counseling Given: Not Answered Comments:reviewed Alcohol Use Standard Drinks/Week Comments Yes 0 (1 standard drink = 0.6 oz pur e alcohol) reviewed Hunger/Food Answer Date Recorded In the last 12 months, did y ou or your family ever eat less than you felt you should because there wasn't enough money for food? No 04/28/2024 Stable Housing Answer Date Recorded Are you worried that in the next 2 months you may not have stable housing? No 04/28/2024 Transportation Concerns Answer Date Rec orded In the last 12 months, have you or your family ever had to go without healthcare because you didn't have a way to get there? No 04/28/2024 Hazards in Home Answer Date Recorded Think about the place you li ve. Do you have problems with any of the following? Pests (mice or roaches), mold, no/not working smoke detectors, water leaks, no window guards. No 2023 Financing Utilities Answer Date Recorde d In the last 12 months, has t he electric, gas, oil, or water company threatened to shut off your services in your home? No 04/28/2024 Safety at Home Answer Date Recorded Are you or your family worried about feeling saf e in your home? No 04/28/2024 Outside Support Answer Date Recorded Do you feel that you need mo re support from other people or programs to help you care for yourself or your family? No 04/28/2024 Understanding Health Concerns Answer Da te Recorded Do you need help understandi ng your or your child's healthcare needs (diagnosis, medications, plan, etc.)? No 04/28/2024 Financing Health Concerns Answer Date R ecorded In the last 12 months, was t here a time when your child needed to see a doctor or get medications or supplies but could not because of cost? No 04/28/2024 Missing School or Work Answer Date Topher rded Did you or your child miss s chool or work because of a health problem that could have been avoided? No 04/28/2024 Child Education Answer Date Recorded Do you have concerns about y our/your child's learning or behavior in school, preschool, or daycare? No 04/28/2024 Sex and Gender Information Value Date Recorded Sex Assigned at Male 07/15/2021 10:23 AM EST Legal Sex Male 11:29 AM EDT Gender Identity Male 07/15/2021 10:23 AM EST Sexual Orientation Straight 07/15/2021 10 :23 AM EST Last Filed Vital Signs Vital Sign Reading Time Taken Comments Blood Pressure 116/70 04/28/2024 9:54 AM EDT Pulse 80 04/28/2024 9:54 AM EDT Temperature 37.1 C (98.8 F) 01/28/2023 11:49 AM EDT Respiratory Rate - - Oxygen Saturation - - Inhaled Oxygen Concentration - - Weight 80.1 kg (176 lb 8 oz) 04/28/2024 9:54 AM EDT Height 177.8 cm (5' 10 ) 04/28/2024 9:54 AM EDT Body Mass Index 25.33 04/28/2024 9:54 AM EDT Plan of Treatment Health Maintenance Due Date Last Done Comments Influenza Vaccines (#1) 2025 04/28/20 24, 05/14/2021, 04/17/2020, Additional history exists COVID-19 Vaccine ( season) 2025 08/02/2021, 01/03/2021, 12/14/2020 DTaP,Tdap,and Td Vaccines (8 - Td or Tdap) 01/29/2033 01/29/2023, 06/14/2013, 04/20/2006, Additional history exists HIB Vaccines Completed 07/21/2002, 06/27, 2001, Additional history exists Hepatitis B Vaccines Completed 07/21/2002, 01/03/2002, 2001, Additional history exists Pneumococcal Vaccine Completed 07/21/2002, 2001, 2001, Additional history exists MMR Vaccines Completed 04/18/2005, 07/21/2002 IPV Vaccines Completed 04/20/2006, 04/0 07/2002, 2001, Additional history exists Varicella Vaccines Completed 04/29/2007, 04/11/2002 Meningococcal Vaccine Completed 01/06/2020, 014 Men B Vaccine Completed 07/15/2021, 02/23/2020 HPV Vaccines Completed 08/07/2023, 0 01/2023, 01/29/2023 Hepatitis A Vaccines Aged Out 04/28/2024 No long er eligible based on patient's age to complete this topic Insurance O
--- OUTSIDE RECORDS SUMMARY | 2025-06-19 20:12 | XMS_ITS | Encounter Summary ---
Author Organization [facility] Address [address] [place] [address] Care Team Providers Care Match Maker Name Role Phone Roberto Herron MD Primary Care Provider Encounter Details Date Type Department Care Team (Late st Contact Info) Description 11/15/2024 Switchboard Message [facility] Revenue Cycle Management [address] [place] [address] Mychart, Generic Provider [address] [place] [address] [facility] Customer Service Request Social History Tobacco Use Types Packs/Day Years Used Date Smoking Tobacco: Never Smokeless Tobacco: Current Comments:Vapes nicotene Alcohol Use Standard Drinks/Week Comments Yes 0 (1 standard drink = 0.6 oz pur e alcohol) ocassionally [facility] Utilities Answer Date Recorded In the past 12 months has e [place], gas, oil, or water [employer] threatened to shut off services in your home? No 07/11/2024 Hunger Vital Sign Answer Date Recorded Within the past 12 months, y ou worried that your food would run out before you got the money to buy more. Never true 07/11/20 24 Within the past 12 months, t he food you bought just didn't last and you didn't have money to get more. Never true 07/11/2024 Transportation Answer Date Recorded In the past 12 months, has l ack of reliable transportation kept you from medical appointments, meetings, work or from getting things needed for daily living? No 07/11/2024 Housing Answer Date Recorded Housing Risk Low 2 07/11/2024 Housing Risk Medium Not on file 07/11/2024 Housing Risk High Not on file 07/11/2024 What is your living situation today? LSSTEADY 07/11/2024 Sex and Gender Information Value Date Recorded Sex Assigned at Male 12/15/2021 5:37 PM EDT Legal Sex Male 3:55 AM EDT Gender Identity Male 12/15/2021 5:37 PM EDT Sexual Orientation Straight 12/15/2021 5: 37 PM EDT documented as of this encounter Plan of Treatment Upcoming Encounters Date Type Department Care Team (Late st Contact Info) Description 06/29/2025 8:30 AM EST Follow-Up [facility] Infectious Disease Clinic [address] [place] [address] Integrity Director: [place] [address] 08/21/2025 2:00 PM EST Lab [facility] ACC Draw Site Fifth Floor [address] [place] [address] 08/21/2025 3:00 PM EST Follow-Up [facility] ACC Building Cancer Clinic South 5th Floor [address] [place] [address] Khloe Palacios MD [address] [place] [address] documented as of this encounter Visit Diagnoses Not on filedocumented in this encounter Additional Health Concerns Infection Onset Date Last Indicated Resolved Time R/O Respiratory Virus Infection 05/05/2025 05/05/2025 6:43 PM EDT R/O Influenza 05/05/2025 05/05/2025 05/05/2025 6:4 3 PM EDT COVID-19 - Suspected infection 05/05/2025 05/05/2025 05/05/2025 6:43 PM EDT documented as of this encounter Care Teams Match Maker Relationship Specialty Start Date End Date Roberto Herron MD [address] [place] [address] PCP - General Internal Medicine 06/16/25 documented as of this encounter
--- OUTSIDE RECORDS SUMMARY | 2025-06-19 20:12 | XMS_ITS | Encounter Summary ---
Author Organization [facility] Address [address] [place] [address] Care Team Providers Care Mirror Machine Feeder Name Role Phone Roberto Herron MD Primary Care Provider [phone] Encounter Details Date Type Department Care Team (Late st Contact Info) Description 06/15/2025 Orders Only [facility] Xray [address] [place] [address] Pola Melissa MD [address] [place] [address] Social History Tobacco Use Types Packs/Day Years [...] money to get more. Never true 05/14/2025 [facility] Utilities Answer Date Recorded In the [...] Info) Description 06/29/2025 8:30 AM EST Follow-Up [facility] Infectious Disease Clinic [address] [place] [address] Corn Husker: [place] [address] 08/21/2025 2:00 PM EST Lab [facility] ACC Draw Site Fifth Floor [address] [place] [address] 08/21/2025 3:00 PM EST Follow-Up [facility] ACC Building Cancer Clinic South 5th Floor [address] [place] [address] Khloe Palacios MD [address] [place] [address] documented as of this encounter Visit Diagnoses Not on filedocumented in this encounter Care Teams Mirror Machine Feeder Relationship Specialty Start Date End Date Roberto Herron MD [address] [place] [address] PCP - General Internal Medicine 06/16/25 documented as of this encounter
--- OUTSIDE RECORDS SUMMARY | 2025-06-19 20:12 | XMS_ITS | Encounter Summary ---
Author Organization [facility] Address [address] [place] [address] Care Team Providers Care Hand Tire Trimmer Name Role Phone Roberto Herron MD Primary Care Provider Reason for Visit * Reason Onset Date Comments Med Refill 06/16/2025 Encounter Details Date Type Department Care Team (Late st Contact Info) Description 06/16/2025 Refill [facility] [address] [place] [address] [place] [phone] Roberto Herron MD [address] [place] [phone] Constipation, unspecified constipation type (Primary Dx) Social History Tobacco Use Types [...] money to get more. Never true 05/14/2025 [facility] Utilities Answer Date Recorded In the past [...] encounter Miscellaneous Notes * Telephone Encounter - Desirae Lyons MA - 06/19/2025 9:47 AM EST Recent Visits Date Type Provider Dept 05/29/25 Office Visit [facility] [address] [facility] [place] 07/26/24 Office Visit Roberto Herron MD [address] [facility] 07/11/24 Office Visit Roberto Herron MD [address] [facility] Showing recent visits within past 540 days with a meds authorizing provider and meeting all other requirements Future Appointments No visits were found meeting these conditions. Showing future appointments within next 150 days with a meds authorizing provider and meeting all other requirements documented in this encounter Plan of Treatment Upcoming Encounters Date Type Department Care Team (Late st Contact Info) Description 06/29/2025 8:30 AM EST Follow-Up [facility] [address] [place] [address] Asp Web Developer: [place] [address] 08/21/2025 2:00 PM EST Lab [facility] ACC Draw Site Fifth Floor [address] [place] [address] 08/21/2025 3:00 PM EST Follow-Up [facility] South 5th Floor [address] [place] [address] Khloe Palacios MD [address] [place] [address] documented as of this encounter Visit Diagnoses Diagnosis Constipation, unspecified constipation type- Primary documented in this encounter Care Teams Hand Tire Trimmer Relationship Specialty Start Date End Date Roberto Herron MD [address] [place] [phone] PCP - General Internal Medicine 06/16/25 documented as of this encounter
--- OUTSIDE RECORDS SUMMARY | 2025-06-19 20:12 | XMS_ITS | Encounter Summary ---
Author Organization [facility] Address [address] [place] [address] Care Team Providers Care Studio Engineer Name Role Phone Roberto Herron MD Primary Care Provider Reason for Visit * Reason Onset Date Comments Med Refill 06/16/2025 Encounter Details Date Type Department Care Team (Late st Contact Info) Description 06/16/2025 Refill [facility] [address] [place] [address] [place] [phone] Roberto Herron MD [address] [place] [phone] S/P appendectomy (Primary Dx) Social History Tobacco Use Types [...] more. Never true 05/14/[address] [facility] Utilities Answer Date Recorded In the past 12 months has [employer], gas, oil, or water company threatened [...] encounter Miscellaneous Notes * Telephone Encounter - Cherie Nunes MA - 06/16/2025 11:49 AM EST Pt had appendectomy and needs both meds refilled. By pcp. Pt has future ct scheduled to make sure no infection. But needs flagyl refilled until after then and then they will let him know if he can stop. Recent Visits Date Type Provider Dept 05/29/25 [facility] 07/[facility] Office Visit Roberto Herron MD [address] [facility] Showing recent visits within past 540 days with a meds authorizing provider and meeting all other requirements Future Appointments No visits were found meeting these conditions. Showing future appointments within next 150 days with a meds authorizing provider and meeting all other requirements * Telephone Encounter - Elaine Mott - 06/16/2025 11:18 AM EST Pt is requesting the following meds to be filled: - apixaban (ELIQUIS) 5 mg tablet metroNIDAZOLE (FLAGYL) 500 mg tablet Pharmacy Name: [facility] Can a detailed message be left at that number? YES/NO: Yes documented in this encounter Plan of Treatment Upcoming Encounters Date Type Department Care Team (Late st Contact Info) Description 06/29/2025 8:30 AM EST Follow-Up [facility] Infectious Disease Clinic [address] [place] [address] Manager Pathology: [place] [address] 08/21/2025 2:00 PM EST Lab [facility] ACC Draw Site Fifth Floor [address] [place] [address] 08/21/2025 3:00 PM EST Follow-Up [facility] ACC Building Cancer Clinic South 5th Floor [address] [place] [address] Khloe Palacios MD [address] [place] [address] documented as of this encounter Visit Diagnoses Diagnosis S/P appendectomy- Primary Other postprocedural status documented in this encounter Care Teams Studio Engineer Relationship Specialty Start Date End Date Roberto Herron MD [address] [place] [address] PCP - General Internal Medicine 06/16/25 documented as of this encounter
--- OUTSIDE RECORDS SUMMARY | 2025-06-19 20:12 | XMS_ITS | Encounter Summary ---
Author Organization [facility] Address [address] [place] [address] Care Team Providers Care Straw Hat Presser Name Role Phone Roberto Herron MD Primary Care Provider Reason for Referral * MRI/CAT/PET Scan (Routine) - Closed Specialty Diagnoses / Procedures Referred By Dustin hector Referred To Contact Radiology Diagnoses Hepatic abscess (HCC) Procedures CT Abdomen Pelvis W Contrast Francesca Fitzgerald NP [address] [place] [address] Phone: tel: fax: Referral ID Status Reason Start Date Expiration Date Visits Re quested Visits Authorized [id number] Closed 05/24/2025 08/21/2025 1 1 Encounter Details Date Type Department Care Team (Late st Contact Info) Description 05/23/2025 Orders Only [facility] Interventional Radiology [address] [place] [address] Francesca Fitzgerald NP [address] [place], [place] [phone] Hepatic abscess (HCC) (Primary Dx) Social History [...] money to get more. Never true 05/14/2025 [facility] Utilities Answer Date Recorded In [...] Info) Description 06/29/2025 8:30 AM EST Follow-Up [facility] Infectious Disease Clinic [address] [place] [address] Cull Grader: [place] [address] 08/21/2025 2:00 PM EST Lab [facility] ACC Draw Site Fifth Floor [address] [place] [address] 08/21/2025 3:00 PM EST Follow-Up [facility] ACC Building Cancer Clinic South 5th Floor [address] [place] [address] Khloe Paalcios MD [address] [place] [address] documented as of this encounter Results * Due to [place] state law, this organization might not be sharing negative HIV tests. * CT Abdomen Pelvis W Contrast (05/24/2025 1:03 PM EDT) Anatomical Region Laterality Modality Body [...] to obtain the completed interpretation. Workstation ID: [id number] Narrative 05/25/2025 11:55 AM EDT EXAMINATION: CT [...] AND SOFT TISSUES: Unremarkable. Resulting Agency Comment [id number] Procedure Note Emir Dickerson MD - 05/25/2025 [...] possible to obtain thecompleted interpretation. Workstation ID: [id number] Francesca Fitzgerald NP IM CT PROCEDURES Final Result documented in this encounter Visit Diagnoses Diagnosis Hepatic abscess (HCC)- Primary Abscess of liver Hepatic abscess (HCC) Abscess of liver documented in this encounter Care Teams Straw Hat Presser Relationship Specialty Start Date End Date Roberto Herron MD [address] [place] [id number] PCP - General Internal Medicine 06/16/25 documented as of this encounter
== END 2025-06-19 15:42 | disposition home or self-care (01) ==
LOC: HO.LNP 15:41
DX: K75.0 Abscess of liver (principal)
CPT/HCPCS: 80053; 85025